=== PATIENT | male | born 1960 | race Caucasian/White ===

== ENCOUNTER 2018-03-10 13:30 | Inpatient (IN) | payer MEDICAID, OTHER ==
[2018-03-10] MEDS ORDERED: HYDROmorphone 0.5 MG/0.5 ML Syringe IVPUSH ONE (14:05)
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
[2018-03-10] MEDS ORDERED: Iopamidol 612 MG/ML 100 ML Bottle IV SCH (14:45)
[2018-03-10] MEDS ORDERED: Sodium Chloride 0.9% 100 ML IV SCH (14:45)
--- NOTE | 2018-03-10 15:12 | CT ---
Chest Abdomen Pelvis w Cont HISTORY: fall, trauma, left chest pain, hip pain Axial spiral enhanced CT scan of the chest, abdomen, and pelvis was obtained using IV contrast only. Coronal, sagittal, and MIP reconstructions were obtained. There are no prior exams for comparison. Auto dosage and iterative reconstruction techniques were employed. FINDINGS: Lungs are clear with no infiltrate or mass. There are calcified right hilar lymph nodes con sistent with old healed granulomatous disease. Heart size is within normal limits. No hilar or medias tinal mass or adenopathy is seen. A small amount of coronary artery calcification is noted. There is mild atherosclerotic calcification in the aortic arch. I see no signs of aortic aneurysm, dissection, or transection. No pleural fluid or chest wall abnormality is seen. Attenuation of the liver is decreased diffusely consistent with fatty infiltration. No other focal ab normality of the liver is identified. A tiny calcified granuloma is noted in the spleen. No other spl enic abnormality seen. I see no focal abnormality of the gallbladder, pancreas, adrenal glands, or ki dneys. There is no hydronephrosis or ureteral dilatation. No intrapelvic mass or abnormal fluid collections are seen. There is no pelvic, retroperitoneal, or m esenteric adenopathy. Visualized bowel loops are unremarkable. A normal-appearing appendix is seen. T here is no free air or free fluid. I see no retroperitoneal mass or hematoma. Bone windows demonstrate anterolateral aspects diffusely along the thoracic and lumbar spine. No comp ression fracture is seen. There is a mildly displaced fracture left transverse process of the L2 vert ebrae. No other acute fracture is identified. There is stranding in the subcutaneous fat posterior to the lumbar spine and sacrum extending to the left gluteal region. Associated hematoma is seen in the subcutaneous tissues posteriorly to the left of midline measuring about 6.2 cm transversely, 3.5 cm in AP diameter, and approximately 8.9 cm longi tudinally. I see no enhancement or other signs of active bleeding in this area. IMPRESSION: 1. Ecchymosis/bruising in the subcutaneous tissues posterior to the sacrum and extending to the left gluteal region. There is an associated hematoma to the left of midline measuring 6.2 x 3.5 x 8.9 cm. No active bleeding is seen. 2. There is a mildly displaced fracture left transverse process of the L2 vertebrae. No other definit e fracture can be seen. 3. No other acute abnormality of the chest, abdomen, or pelvis is identified. 4. Diffuse degenerative and operative changes thoracic and lumbar spine. 5. Evidence of old healed granulomatous disease. Fatty infiltration of the liver is noted. Findings were discussed with Dr. Parker in the emergency department at 1505 hours.
[2018-03-10] MEDS ORDERED: Polyethylene Glycol 3350 Powder 17 GM Packet PO PRN (16:19)
[2018-03-10] MEDS ORDERED: Ondansetron 4 MG Tab.DIS PO PRN (16:19)
[2018-03-10] MEDS ORDERED: Ibuprofen 600 MG Tab PO PRN (16:19)
[2018-03-10] MEDS ORDERED: Acetaminophen 325 MG Tab PO PRN (16:19)
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
[2018-03-10] MEDS: HYDROmorphone 0.5 MG/0.5 ML Syringe IVPUSH PRN ×2 (17:09→19:36)
[2018-03-10] MEDS: oxyCODONE 5 MG Tab PO PRN (22:15)
[2018-03-11] MEDS: oxyCODONE 5 MG Tab PO PRN ×4 (03:17→20:52)
[2018-03-11] MEDS ORDERED: LORazepam 1 MG Tab PO ONE (07:46)
--- NOTE | 2018-03-11 08:27 | PCM.PN ---
- General Info Date of Service: 03/11/18 Functional Status: Reports: Tolerating Diet. Denies: Pain Controlled - Review of Systems General: Denies: Fever Musculoskeletal: Reports: Back Pain Neurological: Reports: Tremors Systems Review Comment:: There were no acute events overnight. Pain has had some improvement with pain medications provided but he still has a fair amount of lower back pain in the area of the hematoma. He did have some mild hematuria this morning but did not have any discomfort with that. He does not have any chest pain and has not been hypoxic. This morning he is anxious and his blood pressure has jumped up significantly. He is tremulous. There is concerned that he is experiencing alcohol withdrawal. We did discuss consuming alcohol while hospitalized versus cold turkey withdrawal and he prefers the latter option. - Patient Data Vitals - Most Recent: Last Vital Signs Temp 36.4 C 03/11/18 07:37 Pulse 86 03/11/18 07:37 Resp 16 03/11/18 07:37 BP 171/84 H 03/11/18 07:37 Pulse Ox 98 03/11/18 07:37 Weight - Most Recent: 101.1 kg Lab Results Last 24 Hours: Laboratory Results - last 24 hr 03/10/18 03/10/18 03/10/18 Range/Units 14:00 14:00 14:00 WBC 9.5 (4.5-11.0) K/uL RBC 4.02 L (4.30-5.90) M/uL Hgb 14.1 (12.0-15.0) g/dL Hct 40.4 (40.0-54.0) % MCV 101 H (80-98) fL MCH 35 H (27-31) pg MCHC 35 (32-36) % Plt Count 143 L (150-400) K/uL Neut % (Auto) 70 H (36-66) % Lymph % (Auto) 20 L (24-44) % [place] % (Auto) 8 H (2-6) % Eos % (Auto) 1 L (2-4) % Baso % (Auto) 0 (0-1) % Sodium 129 L (140-148) mmol/L Potassium 4.6 (3.6-5.2) mmol/L Chloride 95 L (100-108) mmol/L Carbon Dioxide 22 (21-32) mmol/L Anion Gap 16.6 H (5.0-14.0) mmol/L BUN 12 (7-18) mg/dL Creatinine 1.0 (0.8-1.3) mg/dL Est Cr Clr Drug Dosing 87.30 mL/min Estimated GFR (MDRD) > 60 (>60) Glucose 138 H (74-106) mg/dL Calcium 8.6 (8.5-10.1) mg/dL Ethyl Alcohol 334 mg/dL 03/10/18 03/11/18 03/11/18 Range/Units 20:00 05:11 05:11 WBC 9.6 (4.5-11.0) K/uL RBC 3.57 L (4.30-5.90) M/uL Hgb 12.5 12.4 (12.0-15.0) g/dL Hct 36.3 L (40.0-54.0) % MCV 102 H (80-98) fL MCH 35 H (27-31) pg MCHC 34 (32-36) % Plt Count 129 L (150-400) K/uL Neut % (Auto) (36-66) % Lymph % (Auto) (24-44) % [place] % (Auto) (2-6) % Eos % (Auto) (2-4) % Baso % (Auto) (0-1) % Sodium 132 L (140-148) mmol/L Potassium 4.6 (3.6-5.2) mmol/L Chloride 96 L (100-108) mmol/L Carbon Dioxide 23 (21-32) mmol/L Anion Gap 17.6 H (5.0-14.0) mmol/L BUN 17 (7-18) mg/dL Creatinine 1.3 (0.8-1.3) mg/dL Est Cr Clr Drug Dosing 67.15 mL/min Estimated GFR (MDRD) 57 L (>60) Glucose 134 H (74-106) mg/dL Calcium 8.8 (8.5-10.1) mg/dL Ethyl Alcohol mg/dL Med Orders - Current: Current Medications Acetaminophen (Tylenol) 650 mg PO Q4H PRN PRN Reason: Pain (Mild 1-3)/fever Folic Acid (Folic Acid) 1 mg PO DAILY [facility] Gabapentin (Neurontin) 400 mg PO TID [facility] Hydromorphone HCl (Dilaudid) 0.5 mg IVPUSH Q2H PRN PRN Reason: Pain (severe 7-10) Last Admin: 03/10/18 19:36 Dose: 0.5 mg Sodium Chloride (Normal Saline) 1,000 mls @ 125 mls/hr IV ASDIRECTED [facility] Ibuprofen (Motrin) 600 mg PO Q6H PRN PRN Reason: Pain/Fever Lorazepam (Ativan) 0 mg IV ASDIRECTED [facility]; Protocol Lorazepam (Ativan) 0 mg PO ASDIRECTED [facility]; Protocol Losartan Potassium (Cozaar) 50 mg PO DAILY [facility] Melatonin (Melatonin) 9 mg PO BEDTIME [facility] Ondansetron HCl (Zofran Odt) 4 mg PO Q6H PRN PRN Reason: Nausea able to take PO Oxycodone HCl (Oxycodone) 5 - 10 mg PO Q4H PRN PRN Reason: Pain (moderate 4-6) Last Admin: 03/11/18 03:17 Dose: 10 mg Polyethylene Glycol (Miralax) 17 gm PO DAILY PRN PRN Reason: Constipation Senna/Docusate Sodium (Senna Plus) 1 tab PO BID PRN PRN Reason: Constipation Thiamine HCl (Vitamin B-1) 100 mg PO DAILY [facility] Discontinued Medications Hydromorphone HCl (Dilaudid) 0.5 mg IVPUSH ONETIME ONE Stop: 03/10/18 14:06 Last Admin: 03/10/18 14:10 Dose: 0.5 mg Sodium Chloride (Normal Saline) 100 mls @ 3 mls/sec IV ASDIRECTED [facility] Last Admin: 03/10/18 14:35 Dose: 3 mls/sec Iopamidol (Isovue-300 (61%)) 100 ml IV . DIRECTED [facility] Last Admin: 03/10/18 14:35 Dose: 100 ml Lorazepam (Ativan) 1 mg PO ONETIME ONE Stop: 03/11/18 07:47 Last Admin: 03/11/18 08:16 Dose: 1 mg - Exam Quality Assessment: No: Supplemental Oxygen General: Alert, Oriented, Cooperative, Mild Distress Lungs: Clear to Auscultation, Normal Respiratory Effort Cardiovascular: Regular Rate, Regular Rhythm GI/Abdominal Exam: Soft, No Distention Back Exam: Other (large area of swelling left lower back ). No: Full Range of Motion Extremities: No Pedal Edema Skin: Warm, Dry Psy/Mental Status: Alert, Anxious, Withdrawal Symptoms (tremors and tongue fasciculations). No: Agitated - Problem List & Annotations (1) Traumatic hematoma of buttock SNOMED Code(s): 79069589, 261327245 Code(s): S30.0XXA - CONTUSION OF LOWER BACK AND PELVIS, INITIAL ENCOUNTER Status: Acute Current Visit: Yes Qualifiers: Encounter type: initial encounter Qualified Code(s): S30.0XXA - Contusion of lower back and pelvis, initial encounter (2) Fracture of transverse process of lumbar vertebra SNOMED Code(s): 121659780 Code(s): S32.009A - UNSP FRACTURE OF UNSP LUMBAR VERTEBRA, INIT FOR CLOS FX Status: Acute Current Visit: Yes Qualifiers: Encounter type: initial encounter Fracture type: closed Qualified Code(s) : S32.009A - Unspecified fracture of unspecified lumbar vertebra, initial encounter for closed fracture (3) Alcohol intoxication SNOMED Code(s): 30629427 Code(s): F10.929 - ALCOHOL USE, UNSPECIFIED WITH INTOXICATION, UNSPECIFIED Status: Acute Current Visit: Yes Qualifiers: Complication of substance-induced condition: uncomplicated Qualified Code(s ): F10.920 - Alcohol use, unspecified with intoxication, uncomplicated - Problem List Review Problem List Initiated/Reviewed/Updated: Yes - My Orders Last 24 Hours: My Active Orders 03/10/18 16:11 Resuscitation Status Routine 03/10/18 16:19 Patient Status [ADT] Routine Cooling Warming Measures [RC] ASDIRECTED Intake and Output [RC] QSHIFT Notify Provider Vital Signs [RC] ASDIRECTED Oxygen Therapy [RC] PRN Up With Assistance [RC] ASDIRECTED VTE/DVT Education [RC] Per Unit Routine Vital Signs [RC] Q2HR Acetaminophen [Tylenol] 650 mg PO Q4H PRN Docusate Sodium/Sennosides [Senna Plus] 1 tab PO BID PRN HYDROmorphone [Dilaudid] 0.5 mg IVPUSH Q2H PRN Ibuprofen [Motrin] 600 mg PO Q6H PRN Ondansetron [Zofran ODT] 4 mg PO Q6H PRN Polyethylene Glycol 3350 [MiraLAX] 17 gm PO DAILY PRN oxyCODONE 5 - 10 mg PO Q4H PRN Heat Therapy [OM.PC] Routine Ice Bag [Ice Therapy] [OM.PC] Routine Sequential Compression Device [OM.PC] Per Unit Routine VTE Pharmacological Contraindications [AST] Per Unit Routine 03/10/18 Dinner Regular Diet [DIET] 03/11/18 08:21 Transfer Patient (Change bed) [ADT] Routine UA W/MICROSCOPIC [URIN] Routine 03/11/18 08:22 CIWAA Assessment [RC] Q1H Cardiac Monitoring [RC] CONTINUOUS Notify Provider [RC] PRN Pulse Oximetry [RC] CONTINUOUS HEPATIC FUNCTION PANEL,HFP [CHEM] Routine MAGNESIUM [CHEM] Routine 03/11/18 08:24 CREATINE KINASE,CK [CHEM] Routine 03/11/18 08:30 LORazepam [Ativan] See Protocol IV ASDIRECTED LORazepam [Ativan] See Protocol PO ASDIRECTED Sodium Chloride 0.9% @ 125 MLS/HR (1000ml) Sodium Chloride 0.9% [Normal Saline] 1,000 ml IV ASDIRECTED 03/11/18 09:00 Folic Acid 1 mg PO DAILY Gabapentin [Neurontin] 400 mg PO TID Losartan [Cozaar] 50 mg PO DAILY Thiamine [Vitamin B-1] 100 mg PO DAILY 03/11/18 21:00 Melatonin 9 mg PO BEDTIME - Plan Plan:: ASSESSMENT AND PLAN - Fall with left buttocks hematoma and transverse fracture of L2 - significant pain because of the hematoma and bruising after the fall. L2 fracture is nondisplaced and does not need any intervention. Still having a fair amount of pain and mobility has been limited. This will be even more complicated now with alcohol withdrawal as discussed below. -Oxycodone for moderate pain and hydromorphone for severe pain -Alternate heat and ice to the large area of hematoma in the lower back -Advance activity as tolerated -Repeat hemoglobin in the morning Alcohol dependence with acute withdrawal - symptoms include anxiousness and signs include tremor and tachycardia. Long history of heavy alcohol use. No history of alcohol withdrawal though he admits he's never quit drinking long enough to go into withdrawal. -gabapentin 3 times a day -Melatonin at bedtime -CIWA assessment with lorazepam protocol -Thiamine and folate supplementation -Pulse oximetry and cardiac monitoring Essential hypertension - usual medications will be continued. Maintenance issues - - DVT prophylaxis - mechanical with recent trauma and hematoma - GI prophylaxis - not indicated - Nutrition - regular diet - Soliz catheter - not indicated CODE STATUS - full code Admission justification - patient will be admitted to inpatient status with his development of alcohol withdrawal. He will be transferred to the intensive care unit for management of alcohol withdrawal. Disposition - I would anticipate discharged home after the hospital stay Primary care physician - Verónica Boateng M.D.
[2018-03-11] MEDS: Sodium Chloride 0.9% 1,000 ML IV SCH ×3 (09:02→23:37)
[2018-03-11] MEDS: HYDROmorphone 0.5 MG/0.5 ML Syringe IVPUSH PRN (09:02)
[2018-03-11] MEDS: LORazepam 2 MG/ML SDV IV SCH ×3 (09:06→23:37)
[2018-03-11] MEDS: Thiamine 100 MG Tab PO SCH (10:25)
[2018-03-11] MEDS: Gabapentin 400 MG Cap PO SCH ×3 (10:25→20:54)
[2018-03-11] MEDS: Folic Acid 1 MG Tab PO SCH (10:25)
[2018-03-11] MEDS: Losartan 50 MG Tab PO SCH (10:34)
[2018-03-11] MEDS: LORazepam 1 MG Tab PO SCH ×5 (10:35→21:18)
[2018-03-11] MEDS: Melatonin 3 MG Tab PO SCH (20:54)
[2018-03-12] MEDS: oxyCODONE 5 MG Tab PO PRN ×4 (04:35→19:28)
[2018-03-12] MEDS: LORazepam 2 MG/ML SDV IV SCH ×3 (04:36→22:32)
[2018-03-12] MEDS: Sodium Chloride 0.9% 1,000 ML IV SCH ×3 (07:16→22:51)
[2018-03-12] MEDS: Losartan 50 MG Tab PO SCH (08:45)
[2018-03-12] MEDS: Folic Acid 1 MG Tab PO SCH (08:45)
[2018-03-12] MEDS: Thiamine 100 MG Tab PO SCH (08:45)
[2018-03-12] MEDS: LORazepam 1 MG Tab PO SCH ×3 (08:46→20:34)
[2018-03-12] MEDS: Gabapentin 400 MG Cap PO SCH ×3 (08:46→20:34)
--- NOTE | 2018-03-12 09:02 | PCM.PN ---
- General Info Date of Service: 03/12/18 Functional Status: Reports: Pain Controlled, Tolerating Diet - Review of Systems General: Reports: Weakness Musculoskeletal: Reports: Back Pain Neurological: Reports: Tremors, Trouble Speaking, Difficulty Walking Psychiatric: Reports: Confusion Systems Review Comment:: overnight the patient had some difficulty with anxiety and agitation. Increasing doses of lorazepam for alcohol withdrawal did eventually settle him down. Vital signs have been stable. He reports that his back pain is somewhat better today but not resolved. No complaints of headache, shortness of breath or abdominal pain. Most recent dose of IV lorazepam was about 4 hours ago. He has not had any fevers. Still has tremors and some mild tongue fasciculations. - Patient Data Vitals - Most Recent: Last Vital Signs Temp 37.3 C 03/12/18 08:00 Pulse 85 03/12/18 08:00 Resp 15 03/12/18 08:00 BP 99/68 03/12/18 08:00 Pulse Ox 94 L 03/12/18 08:00 Weight - Most Recent: 101.1 kg I&O - Last 24 Hours: Intake & Output 03/11/18 03/12/18 03/12/18 22:59 06:59 14:59 Intake Total 1640 Output Total 700 Balance 940 Lab Results Last 24 Hours: Laboratory Results - last 24 hr 03/11/18 Range/Units 17:40 Urine Color [place] Urine Appearance Clear Urine pH 5.0 (4.5-8.0) Ur Specific Delta 1.020 (1.008-1.030) Urine Protein Negative (NEGATIVE) mg/dL Urine Glucose (UA) Normal (NEGATIVE) mg/dL Urine Ketones 15 H (NEGATIVE) mg/dL Urine Occult Blood Negative (NEGATIVE) Urine Nitrite Negative (NEGAITVE) Urine Bilirubin Small (NEGATIVE) Urine Urobilinogen 4 (NORMAL) mg/dL Ur Leukocyte Esterase Negative (NEGATIVE) Urine RBC 0-5 (0-5) Urine WBC 5-10 H (0-5) Ur Epithelial Cells Few Amorphous Sediment Few Urine Bacteria Rare Urine Mucus Few Med Orders - Current: Current Medications Acetaminophen (Tylenol) 650 mg PO Q4H PRN PRN Reason: Pain (Mild 1-3)/fever Folic Acid (Folic Acid) 1 mg PO DAILY [facility] Last Admin: 03/12/18 08:45 Dose: 1 mg Gabapentin (Neurontin) 400 mg PO TID [facility] Last Admin: 03/12/18 08:46 Dose: 400 mg Hydromorphone HCl (Dilaudid) 0.5 mg IVPUSH Q2H PRN PRN Reason: Pain (severe 7-10) Last Admin: 03/11/18 09:02 Dose: 0.5 mg Sodium Chloride (Normal Saline) 1,000 mls @ 125 mls/hr IV ASDIRECTED [facility] Last Admin: 03/12/18 07:16 Dose: 125 mls/hr Ibuprofen (Motrin) 600 mg PO Q6H PRN PRN Reason: Pain/Fever Lorazepam (Ativan) 0 mg IV ASDIRECTED [facility]; Protocol Last Admin: 03/12/18 04:36 Dose: 2 mg Lorazepam (Ativan) 0 mg PO ASDIRECTED [facility]; Protocol Last Admin: 03/12/18 08:46 Dose: 1 mg Losartan Potassium (Cozaar) 50 mg PO DAILY [facility] Last Admin: 03/12/18 08:45 Dose: Not Given Melatonin (Melatonin) 9 mg PO BEDTIME [facility] Last Admin: 03/11/18 20:54 Dose: 9 mg Ondansetron HCl (Zofran Odt) 4 mg PO Q6H PRN PRN Reason: Nausea able to take PO Oxycodone HCl (Oxycodone) 5 - 10 mg PO Q4H PRN PRN Reason: Pain (moderate 4-6) Last Admin: 03/12/18 08:46 Dose: 10 mg Polyethylene Glycol (Miralax) 17 gm PO DAILY PRN PRN Reason: Constipation Senna/Docusate Sodium (Senna Plus) 1 tab PO BID PRN PRN Reason: Constipation Thiamine HCl (Vitamin B-1) 100 mg PO DAILY [facility] Last Admin: 03/12/18 08:45 Dose: 100 mg Discontinued Medications Hydromorphone HCl (Dilaudid) 0.5 mg IVPUSH ONETIME ONE Stop: 03/10/18 14:06 Last Admin: 03/10/18 14:10 Dose: 0.5 mg Sodium Chloride (Normal Saline) 100 mls @ 3 mls/sec IV ASDIRECTED [facility] Last Admin: 03/10/18 14:35 Dose: 3 mls/sec Iopamidol (Isovue-300 (61%)) 100 ml IV . DIRECTED [facility] Last Admin: 03/10/18 14:35 Dose: 100 ml Lorazepam (Ativan) 1 mg PO ONETIME ONE Stop: 03/11/18 07:47 Last Admin: 03/11/18 08:16 Dose: 1 mg - Exam Quality Assessment: No: Supplemental Oxygen General: Alert, Cooperative, No Acute Distress. No: Oriented Lungs: Clear to Auscultation, Normal Respiratory Effort Cardiovascular: Regular Rate, Regular Rhythm GI/Abdominal Exam: Soft, No Distention Extremities: Other (swelling lower left back, much improved). No: Normal Inspection, Increased Warmth Skin: Ecchymosis (left lower back) Psy/Mental Status: Alert, Anxious - Problem List & Annotations (1) Traumatic hematoma of buttock SNOMED Code(s): 13080345, 455748710 Code(s): S30.0XXA - CONTUSION OF LOWER BACK AND PELVIS, INITIAL ENCOUNTER Status: Acute Current Visit: Yes Qualifiers: Encounter type: initial encounter Qualified Code(s): S30.0XXA - Contusion of lower back and pelvis, initial encounter (2) Fracture of transverse process of lumbar vertebra SNOMED Code(s): 648797738 Code(s): S32.009A - UNSP FRACTURE OF UNSP LUMBAR VERTEBRA, INIT FOR CLOS FX Status: Acute Current Visit: Yes Qualifiers: Encounter type: initial encounter Fracture type: closed Qualified Code(s) : S32.009A - Unspecified fracture of unspecified lumbar vertebra, initial encounter for closed fracture (3) Alcohol intoxication SNOMED Code(s): 00881863 Code(s): F10.929 - ALCOHOL USE, UNSPECIFIED WITH INTOXICATION, UNSPECIFIED Status: Acute Current Visit: Yes Qualifiers: Complication of substance-induced condition: uncomplicated Qualified Code(s ): F10.920 - Alcohol use, unspecified with intoxication, uncomplicated - Problem List Review Problem List Initiated/Reviewed/Updated: Yes - My Orders Last 24 Hours: My Active Orders 03/11/18 08:21 Transfer Patient (Change bed) [ADT] Routine 03/11/18 08:22 CIWAA Assessment [RC] Q1H Cardiac Monitoring [RC] CONTINUOUS Notify Provider [RC] PRN Pulse Oximetry [RC] CONTINUOUS 03/11/18 08:30 LORazepam [Ativan] See Protocol IV ASDIRECTED LORazepam [Ativan] See Protocol PO ASDIRECTED Sodium Chloride 0.9% [Normal Saline] 1,000 ml IV ASDIRECTED 03/11/18 09:00 Folic Acid 1 mg PO DAILY Gabapentin [Neurontin] 400 mg PO TID Losartan [Cozaar] 50 mg PO DAILY Thiamine [Vitamin B-1] 100 mg PO DAILY 03/11/18 09:31 Patient Status [ADT] Routine 03/11/18 21:00 Melatonin 9 mg PO BEDTIME 03/13/18 05:00 CBC W/O DIFF,HEMOGRAM [HEME] Timed (1) COMPREHENSIVE METABOLIC PN,CMP [CHEM] Timed CREATINE KINASE,CK [CHEM] Timed - Plan Plan:: ASSESSMENT AND PLAN - Fall with left buttocks hematoma and transverse fracture of L2 - significant pain because of the hematoma and bruising after the fall. L2 fracture is nondisplaced and does not need any intervention. Pain is little bit better today. Movement hampered mostly by his alcohol withdrawal at this point. -Oxycodone for moderate pain and hydromorphone for severe pain -Alternate heat and ice to the large area of hematoma in the lower back -Advance activity as tolerated -Repeat hemoglobin in the morning Alcohol dependence with acute withdrawal - symptoms include anxiousness and signs include tremor and tachycardia. Difficulty with agitation overnight. Patient is confused this morning but able to have a conversation. Still has tremor and tongue fasciculations. Receiving fairly regular doses of both IV and oral lorazepam. -gabapentin 3 times a day -Melatonin at bedtime -CIWA assessment with lorazepam protocol -Thiamine and folate supplementation -Pulse oximetry and cardiac monitoring Essential hypertension - usual medications will be continued. Maintenance issues - - DVT prophylaxis - mechanical with recent trauma and hematoma - GI prophylaxis - not indicated - Nutrition - regular diet - Soliz catheter - not indicated Disposition - I would anticipate discharged home after the hospital stay Jose Boateng M.D.
[2018-03-12] MEDS: Melatonin 3 MG Tab PO SCH (20:34)
[2018-03-13] MEDS: oxyCODONE 5 MG Tab PO PRN ×5 (03:07→20:31)
[2018-03-13] MEDS: LORazepam 1 MG Tab PO SCH (03:07)
[2018-03-13] MEDS: Sodium Chloride 0.9% 1,000 ML IV SCH (06:12)
[2018-03-13] MEDS: Thiamine 100 MG Tab PO SCH (08:39)
[2018-03-13] MEDS: Gabapentin 400 MG Cap PO SCH ×3 (08:39→20:30)
[2018-03-13] MEDS: Losartan 50 MG Tab PO SCH (08:39)
[2018-03-13] MEDS: Folic Acid 1 MG Tab PO SCH (08:39)
--- NOTE | 2018-03-13 09:28 | PCM.PN ---
- General Info Date of Service: 03/13/18 Functional Status: Reports: Pain Controlled, Tolerating Diet - Review of Systems General: Reports: Weakness Neurological: Reports: Confusion, Tremors Systems Review Comment:: Mild difficulty with agitation overnight related to cords for monitoring equipment. Seems to be doing better today with less tremor and less confusion. Back pain slowly improving. Lorazepam requirements for alcohol withdrawal have been slowly decreasing. He has not had any fevers. Strength seems better today. Hemoglobin level stable. - Patient Data Vitals - Most Recent: Last Vital Signs Temp 36.6 C 03/13/18 08:00 Pulse 74 03/13/18 08:00 Resp 17 03/13/18 08:00 BP 118/71 03/13/18 08:00 Pulse Ox 93 L 03/13/18 08:00 Weight - Most Recent: 101.1 kg I&O - Last 24 Hours: Intake & Output 03/12/18 03/13/18 03/13/18 22:59 06:59 14:59 Intake Total 2096 1508 Output Total 1975 1125 Balance 121 383 Lab Results Last 24 Hours: Laboratory Results - last 24 hr 03/13/18 03/13/18 Range/Units 04:10 04:10 WBC 5.0 (4.5-11.0) K/uL RBC 2.84 L (4.30-5.90) M/uL Hgb 10.0 L D (12.0-15.0) g/dL Hct 29.6 L (40.0-54.0) % MCV 104 H (80-98) fL MCH 35 H (27-31) pg MCHC 34 (32-36) % Plt Count 76 L (150-400) K/uL Sodium 134 L (140-148) mmol/L Potassium 3.8 (3.6-5.2) mmol/L Chloride 101 (100-108) mmol/L Carbon Dioxide 25 (21-32) mmol/L Anion Gap 11.8 (5.0-14.0) mmol/L BUN 12 (7-18) mg/dL Creatinine 0.8 (0.8-1.3) mg/dL Est Cr Clr Drug Dosing 109.28 mL/min Estimated GFR (MDRD) > 60 (>60) Glucose 158 H (74-106) mg/dL Calcium 8.1 L (8.5-10.1) mg/dL Total Bilirubin 1.9 H (0.2-1.0) mg/dL AST 113 H (15-37) U/L ALT 83 H (12-78) U/L Alkaline Phosphatase 83 (46-116) U/L Creatine Kinase 192 (39-308) U/L Total Protein 6.2 L (6.4-8.2) g/dL Albumin 2.5 L (3.4-5.0) g/dL Globulin 3.7 H (2.3-3.5) g/dL Albumin/Globulin Ratio 0.7 L (1.2-2.2) Med Orders - Current: Current Medications Acetaminophen (Tylenol) 650 mg PO Q4H PRN PRN Reason: Pain (Mild 1-3)/fever Folic Acid (Folic Acid) 1 mg PO DAILY [facility] Last Admin: 03/13/18 08:39 Dose: 1 mg Gabapentin (Neurontin) 400 mg PO TID [facility] Last Admin: 03/13/18 08:39 Dose: 400 mg Hydromorphone HCl (Dilaudid) 0.5 mg IVPUSH Q2H PRN PRN Reason: Pain (severe 7-10) Last Admin: 03/11/18 09:02 Dose: 0.5 mg Ibuprofen (Motrin) 600 mg PO Q6H PRN PRN Reason: Pain/Fever Lorazepam (Ativan) 0 mg IV ASDIRECTED [facility]; Protocol Last Admin: 03/12/18 22:32 Dose: 2 mg Lorazepam (Ativan) 0 mg PO ASDIRECTED [facility]; Protocol Last Admin: 03/13/18 03:07 Dose: 1 mg Losartan Potassium (Cozaar) 50 mg PO DAILY [facility] Last Admin: 03/13/18 08:39 Dose: 50 mg Melatonin (Melatonin) 9 mg PO BEDTIME [facility] Last Admin: 03/12/18 20:34 Dose: 9 mg Ondansetron HCl (Zofran Odt) 4 mg PO Q6H PRN PRN Reason: Nausea able to take PO Oxycodone HCl (Oxycodone) 5 - 10 mg PO Q4H PRN PRN Reason: Pain (moderate 4-6) Last Admin: 03/13/18 07:40 Dose: 10 mg Polyethylene Glycol (Miralax) 17 gm PO DAILY PRN PRN Reason: Constipation Senna/Docusate Sodium (Senna Plus) 1 tab PO BID PRN PRN Reason: Constipation Thiamine HCl (Vitamin B-1) 100 mg PO DAILY [facility] Last Admin: 03/13/18 08:39 Dose: 100 mg Discontinued Medications Hydromorphone HCl (Dilaudid) 0.5 mg IVPUSH ONETIME ONE Stop: 03/10/18 14:06 Last Admin: 03/10/18 14:10 Dose: 0.5 mg Sodium Chloride (Normal Saline) 100 mls @ 3 mls/sec IV ASDIRECTED [facility] Last Admin: 03/10/18 14:35 Dose: 3 mls/sec Sodium Chloride (Normal Saline) 1,000 mls @ 125 mls/hr IV ASDIRECTED [facility] Last Admin: 03/13/18 06:12 Dose: 125 mls/hr Iopamidol (Isovue-300 (61%)) 100 ml IV . DIRECTED [facility] Last Admin: 03/10/18 14:35 Dose: 100 ml Lorazepam (Ativan) 1 mg PO ONETIME ONE Stop: 03/11/18 07:47 Last Admin: 03/11/18 08:16 Dose: 1 mg - Exam Quality Assessment: No: Supplemental Oxygen General: Alert, Oriented, Cooperative, No Acute Distress Lungs: Normal Respiratory Effort Cardiovascular: Regular Rate, Regular Rhythm GI/Abdominal Exam: Soft, No Distention Back Exam: No: Normal Inspection Extremities: No Pedal Edema Skin: Warm, Dry, Ecchymosis (lower back) Psy/Mental Status: Alert, Normal Affect. No: Anxious - Problem List & Annotations (1) Traumatic hematoma of buttock SNOMED Code(s): 99192997, 861460805 Code(s): S30.0XXA - CONTUSION OF LOWER BACK AND PELVIS, INITIAL ENCOUNTER Status: Acute Current Visit: Yes Qualifiers: Encounter type: initial encounter Qualified Code(s): S30.0XXA - Contusion of lower back and pelvis, initial encounter (2) Fracture of transverse process of lumbar vertebra SNOMED Code(s): 022110395 Code(s): S32.009A - UNSP FRACTURE OF UNSP LUMBAR VERTEBRA, INIT FOR CLOS FX Status: Acute Current Visit: Yes Qualifiers: Encounter type: initial encounter Fracture type: closed Qualified Code(s) : S32.009A - Unspecified fracture of unspecified lumbar vertebra, initial encounter for closed fracture (3) Alcohol intoxication SNOMED Code(s): 46235656 Code(s): F10.929 - ALCOHOL USE, UNSPECIFIED WITH INTOXICATION, UNSPECIFIED Status: Acute Current Visit: Yes Qualifiers: Complication of substance-induced condition: uncomplicated Qualified Code(s ): F10.920 - Alcohol use, unspecified with intoxication, uncomplicated - Problem List Review Problem List Initiated/Reviewed/Updated: Yes - My Orders Last 24 Hours: My Active Orders 03/13/18 08:43 Convert IV to Saline Lock [OM.PC] Routine 03/14/18 05:00 BASIC METABOLIC PANEL,BMP [CHEM] Timed CBC W/O DIFF,HEMOGRAM [HEME] Timed (1) - Plan Plan:: ASSESSMENT AND PLAN - Fall with left buttocks hematoma and transverse fracture of L2 - pain slowly improving at this time. Hemoglobin level stable and hematoma does not seem to be increasing. -Oxycodone for moderate pain and hydromorphone for severe pain -Alternate heat and ice to the large area of hematoma in the lower back -Advance activity as tolerated -Repeat hemoglobin in the morning Alcohol dependence with acute withdrawal - slowly improving and he is more alert and interactive today. Still weak and a little bit confused but a bit better today. -gabapentin 3 times a day -Melatonin at bedtime -CIWA assessment with lorazepam protocol -Thiamine and folate supplementation -Discontinue Pulse oximetry and cardiac monitoring Essential hypertension - usual medications will be continued and blood pressure has been well-controlled. Maintenance issues - - DVT prophylaxis - mechanical with recent trauma and hematoma - GI prophylaxis - not indicated - Nutrition - regular diet - Soliz catheter - not indicated Disposition - I would anticipate discharged home after the hospital stay, hopefully in a day or 2 Jose Boateng M.D.
[2018-03-13] MEDS: Melatonin 3 MG Tab PO SCH (20:30)
[2018-03-14] MEDS: oxyCODONE 5 MG Tab PO PRN ×3 (00:40→12:17)
[2018-03-14 07:31] VITALS: BP 132/90
[2018-03-14] MEDS: Losartan 50 MG Tab PO SCH (08:20)
[2018-03-14] MEDS: Folic Acid 1 MG Tab PO SCH (08:21)
[2018-03-14] MEDS: Thiamine 100 MG Tab PO SCH (08:21)
[2018-03-14] MEDS: Gabapentin 400 MG Cap PO SCH (08:21)
--- NOTE | 2018-03-14 09:19 | PCM.DCSUM1 ---
Discharge Summary - Hospital Course Brief History: 57-year-old male with history of alcohol dependence and chronic hepatitis C who presented with lower back pain and swelling after a fall from a ladder. He was admitted for pain control with a large lumbar hematoma and nondisplaced left L2 fracture. Diagnosis: Stroke: No - Discharge Data Discharge Date: 03/14/18 Discharge Disposition: Home, Self-Care 01 Condition: Fair - Discharge Diagnosis/Problem(s) (1) Traumatic hematoma of buttock SNOMED Code(s): 09247387, 399946164 ICD Code: S30.0XXA - CONTUSION OF LOWER BACK AND PELVIS, INITIAL ENCOUNTER Status: Acute Current Visit: Yes Qualifiers: Encounter type: initial encounter Qualified Code(s): S30.0XXA - Contusion of lower back and pelvis, initial encounter (2) Fracture of transverse process of lumbar vertebra SNOMED Code(s): 688498463 ICD Code: S32.009A - UNSP FRACTURE OF UNSP LUMBAR VERTEBRA, INIT FOR CLOS FX Status: Acute Current Visit: Yes Qualifiers: Encounter type: initial encounter Fracture type: closed Qualified Code(s) : S32.009A - Unspecified fracture of unspecified lumbar vertebra, initial encounter for closed fracture (3) Alcohol intoxication SNOMED Code(s): 08177113 ICD Code: F10.929 - ALCOHOL USE, UNSPECIFIED WITH INTOXICATION, UNSPECIFIED Status: Acute Current Visit: Yes Qualifiers: Complication of substance-induced condition: with delirium Qualified Code(s ): F10.921 - Alcohol use, unspecified with intoxication delirium - Patient Summary/Data Hospital Course: Tavon presented to the emergency room with acute lower back pain and swelling after falling off a ladder at home. Workup in the emergency room revealed a large hematoma of the left lower back and left buttocks area. He had a nondisplaced fracture of the L2 transverse process. He had significant difficulty moving around so he was admitted for pain control. Unfortunately the morning after admission he developed severe alcohol withdrawal with delirium and was transferred to the intensive care unit. He was started on the lorazepam protocol as well as gabapentin and melatonin. He required IV doses of lorazepam for the next couple of days but eventually his alcohol withdrawal did slowly improve. We did check some laboratory studies and his bilirubin is mildly elevated as were his AST and ALT. The elevation of his transaminases was consistent with his chronic hepatitis C infection. Slowly but steadily his alcohol withdrawal improved. His back pain has been slowly improving but still remains moderate in nature. Oxycodone has been sufficient to control his back pain. He has not received any lorazepam in 24 hours. He is up and moving around independently and I believe he is safe for outpatient management at this time. He will be using oxycodone for moderate to severe pain and acetaminophen and ibuprofen for mild pain. He will increase his activity as tolerated. Regarding his alcohol use, I did chemical dependency counselor him about the dangers of using alcohol while he has an active hepatitis C infection. We discussed how alcohol use in the setting of this infection can accelerate liver damage. He is going to work on quitting drinking and has been counseled in the past by his patcher helper who told him the same thing. He is aware of [place] for detoxification as well as the Alcoholics Anonymous classes [facility]. - Patient Instructions Diet: Regular Diet as Tolerated Activity: As Tolerated Showering/Bathing: May Shower Notify Provider of: Fever, Increased Pain, Nausea and/or Vomiting Other/Special Instructions: 1. You were in the hospital for management of a traumatic hematoma of your lower back with non-displaced fracture of your L2 vertebrae. This fracture does not need specific treatment and will heal on its own. Your pain has been slowly improving. This pain will likely take several more days to resolve. You should slowly increase your activity as tolerated. I have provided a prescription for oxycodone. You can use this medication for moderate to severe pain. You could use acetaminophen or ibuprofen for mild pain. 2. During the hospital stay you developed alcohol withdrawal. This condition has resolved with management provided here in the hospital. I would strongly suggest abstinence from alcohol, especially because you have hepatitis C. The combination of alcohol and hepatitis C can accelerate liver damage which could be permanent and fatal. 3. Continue your home medication as previously prescribed. 4. Seek medical attention if you have fever greater than 101, severe pain not controlled by pills at home or if you develop sudden onset of shortness of breath or chest pain. - Discharge Plan *PRESCRIPTION DRUG MONITORING PROGRAM REVIEWED*: Not Applicable *COPY OF PRESCRIPTION DRUG MONITORING REPORT IN PATIENT [place]: Not Applicable Prescriptions/Med Rec: oxyCODONE 5 - 10 mg PO Q4H PRN #40 tablet PRN Reason: Pain (Moderate 4-6) Home Medications: Home Meds Losartan [Cozaar] 50 mg PO DAILY 03/10/18 [History] oxyCODONE 5 - 10 mg PO Q4H PRN #40 tablet 03/14/18 [Rx] Patient Handouts: Alcohol Use Disorder Referrals: Verónica Ballard PA [Primary Care Provider] - (f/u as scheduled tomorrow) - Discharge Summary/Plan Comment DC Time >30 min.: No - Patient Data Vitals - Most Recent: Last Vital Signs Temp 36.2 C 03/14/18 07:30 Pulse 68 03/14/18 07:30 Resp 16 03/14/18 07:30 BP 132/90 03/14/18 08:20 Pulse Ox 97 03/14/18 03:14 Weight - Most Recent: 101.1 kg I&O - Last 24 hours: Intake & Output 03/13/18 03/14/18 03/14/18 22:59 06:59 14:59 Intake Total 700 Output Total 900 Balance -900 700 Lab Results - Last 24 hrs: Laboratory Results - last 24 hr 03/14/18 03/14/18 Range/Units 04:30 04:30 WBC 4.3 L (4.5-11.0) K/uL RBC 2.84 L (4.30-5.90) M/uL Hgb 10.1 L (12.0-15.0) g/dL Hct 29.7 L (40.0-54.0) % MCV 105 H (80-98) fL MCH 36 H (27-31) pg MCHC 34 (32-36) % Plt Count 75 L (150-400) K/uL Sodium 135 L (140-148) mmol/L Potassium 3.8 (3.6-5.2) mmol/L Chloride 102 (100-108) mmol/L Carbon Dioxide 29 (21-32) mmol/L Anion Gap 7.8 (5.0-14.0) mmol/L BUN 12 (7-18) mg/dL Creatinine 0.9 (0.8-1.3) mg/dL Est Cr Clr Drug Dosing 97.14 mL/min Estimated GFR (MDRD) > 60 (>60) Glucose 158 H (74-106) mg/dL Calcium 8.7 (8.5-10.1) mg/dL Med Orders - Current: Current Medications Acetaminophen (Tylenol) 650 mg PO Q4H PRN PRN Reason: Pain (Mild 1-3)/fever Folic Acid (Folic Acid) 1 mg PO DAILY [facility] Last Admin: 03/14/18 08:21 Dose: 1 mg Gabapentin (Neurontin) 400 mg PO TID [facility] Last Admin: 03/14/18 08:21 Dose: 400 mg Hydromorphone HCl (Dilaudid) 0.5 mg IVPUSH Q2H PRN PRN Reason: Pain (severe 7-10) Last Admin: 03/11/18 09:02 Dose: 0.5 mg Ibuprofen (Motrin) 600 mg PO Q6H PRN PRN Reason: Pain/Fever Lorazepam (Ativan) 0 mg IV ASDIRECTED [facility]; Protocol Last Admin: 03/12/18 22:32 Dose: 2 mg Lorazepam (Ativan) 0 mg PO ASDIRECTED [facility]; Protocol Last Admin: 03/13/18 03:07 Dose: 1 mg Losartan Potassium (Cozaar) 50 mg PO DAILY [facility] Last Admin: 03/14/18 08:20 Dose: 50 mg Melatonin (Melatonin) 9 mg PO BEDTIME [facility] Last Admin: 03/13/18 20:30 Dose: 9 mg Ondansetron HCl (Zofran Odt) 4 mg PO Q6H PRN PRN Reason: Nausea able to take PO Oxycodone HCl (Oxycodone) 5 - 10 mg PO Q4H PRN PRN Reason: Pain (moderate 4-6) Last Admin: 03/14/18 06:50 Dose: 10 mg Polyethylene Glycol (Miralax) 17 gm PO DAILY PRN PRN Reason: Constipation Senna/Docusate Sodium (Senna Plus) 1 tab PO BID PRN PRN Reason: Constipation Thiamine HCl (Vitamin B-1) 100 mg PO DAILY [facility] Last Admin: 03/14/18 08:21 Dose: 100 mg Discontinued Medications Hydromorphone HCl (Dilaudid) 0.5 mg IVPUSH ONETIME ONE Stop: 03/10/18 14:06 Last Admin: 03/10/18 14:10 Dose: 0.5 mg Sodium Chloride (Normal Saline) 100 mls @ 3 mls/sec IV ASDIRECTED [facility] Last Admin: 03/10/18 14:35 Dose: 3 mls/sec Sodium Chloride (Normal Saline) 1,000 mls @ 125 mls/hr IV ASDIRECTED [facility] Last Admin: 03/13/18 06:12 Dose: 125 mls/hr Iopamidol (Isovue-300 (61%)) 100 ml IV . DIRECTED [facility] Last Admin: 03/10/18 14:35 Dose: 100 ml Lorazepam (Ativan) 1 mg PO ONETIME ONE Stop: 03/11/18 07:47 Last Admin: 03/11/18 08:16 Dose: 1 mg - Exam Quality Assessment: Denies: Supplemental Oxygen General: Reports: Alert, Oriented, Cooperative, No Acute Distress Lungs: Reports: Normal Respiratory Effort Cardiovascular: Reports: Regular Rate, Regular Rhythm GI/Abdominal Exam: Soft, No Distention Back Exam: Reports: Other (Large bruises over his lower back left greater than right). Denies: Normal Inspection Extremities: No Pedal Edema Skin: Reports: Warm, Dry Psy/Mental Status: Reports: Alert, Normal Affect *Q Meaningful Use (DIS) - VTE *Q VTE Pharmacological Contraindications *Q: Active Hemorrhage
== END 2018-03-14 12:42 | disposition home or self-care (01) | DRG 552 ==
LOC: JP.ED 13:30 → JP.MS 16:11 → JP.ICU 03-11 08:21 → OBSVTOIN 03-11 09:31
PROVIDERS: ADMIT Internal Medicine; ATTEND Internal Medicine
DX: S32.029A Unspecified fracture of second lumbar vertebra, initial encounter for closed fracture (principal); F10.231 Alcohol dependence with withdrawal delirium; S30.0XXA Contusion of lower back and pelvis, initial encounter; Y90.8 Blood alcohol level of 240 mg/100 ml or more; F10.229 Alcohol dependence with intoxication, unspecified; B18.2 Chronic viral hepatitis C; I10 Essential (primary) hypertension; W11.XXXA Fall on and from ladder, initial encounter; Y93.H9 Activity, other involving exterior property and land maintenance, building and construction; Y92.007 Garden or yard of unspecified non-institutional (private) residence as the place of occurrence of the external cause; Z88.5 Allergy status to narcotic agent; Z91.018 Allergy to other foods
CPT/HCPCS: 36415; 71260; 71260-26; 74177; 74177-26; 80048; 80053; 80076; 81001; 82550; 83735; 85018; 85025; 85027; 96374; 96375; 96376; 99232; 99238; 99285-25; A9270-GY; G0480; J1170; J2060; J7030; Q9967

== ENCOUNTER 2020-03-16 07:38 | Inpatient (IN) | payer MEDICAID ==
[2020-03-16] MEDS ORDERED: Sodium Chloride 0.9% 1,000 ML IV SCH (08:15)
[2020-03-16] MEDS ORDERED: fentaNYL 100 MCG/2 ML SDV ONE (09:12)
[2020-03-16] MEDS ORDERED: Propofol 200 MG/20 ML SDV ONE ×2 (09:12→10:11)
[2020-03-16] MEDS ORDERED: Midazolam 1 MG/ML 2 ML SDV ONE (09:12)
[2020-03-16] MEDS ORDERED: Pantoprazole 40 MG Vial IVPUSH ONE (10:54)
[2020-03-16] MEDS ORDERED: Ondansetron 4 MG/2 ML SDV IVPUSH PRN (15:26)
[2020-03-16] MEDS ORDERED: Bisacodyl 10 MG Supp RECTAL ONE (15:30)
--- NOTE | 2020-03-16 15:36 | CT ---
Abdomen Pelvis wo Cont CLINICAL HISTORY: Pain post colonoscopy COMPARISON: None. TECHNIQUE: Axial tomographic images are obtained from the dome of the diaphragm to the pubic symphysis without IV contrast enhancement. No oral contrast was used. Auto dosage reduction and iterative reconstruction techniques employed. FINDINGS: The lung bases are clear. There are a few scattered granulomata. The liver is small and lobulated. There is significant abdominal pelvic ascites. There is mild splenomegaly.. The gallbladder is not well seen. No stones are identified. The pancreas shows no mass or inflammatory change. The adrenal glands appear normal bilaterally. The kidneys show no stones or hydronephrosis. The aorta shows atheromatous plaque without aneurysm. There is no suspicious retroperitoneal adenopathy. Bladder has a normal contour. No free air is identified. There is diffuse gaseous distention of small bowel and colon related to recent colonoscopy. IMPRESSION: Massive ascites Small bowel and colonic distention from recent colonoscopy. No free air is seen. Changes of cirrhosis Mild splenomegaly
[2020-03-16] MEDS: Dextrose 5%-Lactated Ringers 1,000 ML IV SCH (15:45)
[2020-03-16] MEDS ORDERED: Naloxone 0.4 MG/ML SDV IV PRN (16:00)
[2020-03-16] MEDS: HYDROmorphone/Normal Saline 15 MG/30 ML PCA IV PRN (16:12)
--- NOTE | 2020-03-16 16:27 | OR ---
DATE OF PROCEDURE: 03/16/2020 SURGEON: King Holt MD PREOPERATIVE DIAGNOSIS: Hepatic cirrhosis. POSTOPERATIVE DIAGNOSES: 1. Upper gastrointestinal endoscopy showing: a. Large hiatal hernia (5 cm) with multiple linear esophageal ulcers. b. No evident esophageal or gastric varices. c. Diffuse mild gastritis. 2. Flexible colonoscopy showing: a. Small polyps involving distal transverse and distal sigmoid colon. b. Significant engorgement of hemorrhoidal vein. 3. OPERATIVE PROCEDURES: 1. Esophagogastroduodenoscopy with: a. Biopsy of esophagogastric junction for histologic evaluation. b. Biopsies of antrum for CLOtest. 2. Flexible colonoscopy with: a. Polypectomy by snare technique x2. b. Injection of Laina ink into submucosa adjacent to the polypectomy site. ANESTHESIA: IV sedation. INDICATION FOR PROCEDURE: The patient is being treated for hepatitis C related hepatic cirrhosis. He underwent upper and lower endoscopy for diagnostic purposes. Potential risks of the procedure including bleeding and perforation were discussed and the patient wishes to proceed. DETAILS OF PROCEDURE: The patient was taken to the operating room, placed in a left lateral decubitus position. IV sedation was administered, after which the upper GI endoscope was passed orally through the length of the esophagus into the stomach with retroflexion view of the fundus and thereafter through the pyloric channel and into the junction of the third and fourth portions of the duodenum. Findings included normal hypopharynx, larynx, upper esophageal sphincter, esophageal body. At the EG junction, the patient was noted to have roughly 5 cm hiatal hernia with quite aggressive-appearing distal esophagitis. This included multiple ulcers extending up to size 5 cm above the esophagogastric junction and these were covered with fibrinous exudate. No active bleeding was seen. Within the stomach, there was mild diffuse gastritis more prominent in the antrum without erosions or ulcers. Pyloric channel and the visualized portion of the duodenum were unremarkable. At this point, biopsies were taken from the antrum and sent for CLOtest for H. pylori. Multiple biopsies were obtained from the area of ulcerations in the distal esophagus and sent for histologic evaluation. Of note, the patient did not have any evidence of esophageal or gastric varices. Gastroscope at this point was then withdrawn and the procedure concluded. Attention was then taken to the colonoscopy. The digital rectal exam was performed and it was unremarkable. Colonoscope was then passed into the rectum. Retroflexion revealed some hemorrhoidal veins. These were not significantly engorged. The scope was then passed to the level of the cecum with the ileocecal valve being visualized. The prep was fair. There was some liquid stool obscuring 5% of the surface where the polyp less than 0.5 cm might be missed. Otherwise, there were 2 polyps; one in the distal sigmoid colon and one in the distal transverse colon. Both of these were removed by means of cautery snare technique and retrieved. Both sites were then marked with submucosal injection of 3 mL of Laina ink at each side, and at that point, the scope was withdrawn. No additional findings were noted. The procedure was concluded. The patient was taken to the recovery room in satisfactory condition. The patient's overall management at this point will include a repeat paracentesis in roughly 1 week. With regard to the esophagitis, we will give the patient Protonix 40 mg IV in the PAR and then begin 40 mg orally daily. King Holt MD /[id number]
[2020-03-16] MEDS: Metoclopramide 10 MG/2 ML SDV IV SCH ×2 (16:28→21:40)
[2020-03-16] MEDS: Pantoprazole 40 MG Vial IV SCH (16:28)
--- NOTE | 2020-03-16 19:51 | OR ---
DATE OF PROCEDURE: 03/16/2020 SURGEON: King Holt MD PREOPERATIVE DIAGNOSIS: Tense ascites. POSTOPERATIVE DIAGNOSIS: Tense ascites. OPERATIVE PROCEDURE: Ultrasound-guided paracentesis. ANESTHESIA: Local. INDICATION FOR PROCEDURE: The patient presents again with tense ascites 1 week after previous paracentesis. Plan is to proceed with paracentesis with ultrasound guidance. Potential risks including bleeding, infection, and injury to the underlying viscera were all reviewed, and the patient wishes to proceed. DETAILS OF PROCEDURE: In the health care / [facility] procedure room, the abdomen was interrogated with ultrasound, and an area in the right subcostal region was then identified for the paracentesis. The area was prepped and draped, anesthetized with 1% lidocaine, and the paracentesis catheter was then placed. 5 L of clear serous fluid was removed, and at that point, the catheter was withdrawn, and a pursestring stitch of 2-0 Prolene placed to prevent leakage, and a dressing applied. The plan regarding this would be also to repeat the paracentesis in 1 week. We are awaiting improvement in his medical status and some efficacy of the diuretics, but plan will be to repeat paracentesis in 1 week. Later today, he will be undergoing a colonoscopy and upper endoscopy for further evaluation of his underlying liver disease as well as screening colonoscopy. King Holt MD /[id number]
[2020-03-17] MEDS: Metoclopramide 10 MG/2 ML SDV IV SCH ×4 (03:44→21:02)
[2020-03-17] MEDS: Pantoprazole 40 MG Vial IV SCH (03:44)
[2020-03-17] MEDS: Bisacodyl 5 MG Tab PO SCH ×3 (08:32→21:02)
[2020-03-17] MEDS: Azithromycin 250 MG Tab PO SCH ×2 (08:32→21:02)
[2020-03-17] MEDS: Furosemide 20 MG Tab PO SCH (08:32)
[2020-03-17] MEDS: Spironolactone 25 MG Tab PO SCH (08:32)
[2020-03-17] MEDS: Losartan 50 MG Tab PO SCH (08:32)
--- NOTE | 2020-03-17 12:56 | PN ---
DATE OF SERVICE: 03/17/2020 The patient was admitted yesterday after a colonoscopy and upper endoscopy for marked abdominal distention and obstipation. He was passing a little bit of flatus overnight, but was still quite distended and not comfortable. We will switch him to inpatient status and then give him some additional bowel stimulation with oral Zithromax as well as Dulcolax oral tablets and make sure we will give him some additional albumin as well for treatment of the underlying cirrhosis and go up to a regular diet. King Holt MD /[id number]
[2020-03-17] MEDS: Pantoprazole 40 MG Tab.CR PO SCH (16:28)
[2020-03-17] MEDS: Dextrose 5%-Lactated Ringers 1,000 ML IV SCH (18:04)
[2020-03-17] MEDS ORDERED: Lidocaine 2% Jelly 10 ML Urojet MUCMEM ONE (18:54)
[2020-03-17] MEDS ORDERED: Lidocaine 2% Jelly 10 ML Urojet ONE (19:04)
[2020-03-18] MEDS ORDERED: Lactated Ringers 1,000 ML IV ONE ×3 (01:30→11:50)
[2020-03-18] MEDS: Metoclopramide 10 MG/2 ML SDV IV SCH ×4 (04:01→21:20)
[2020-03-18] MEDS: Pantoprazole 40 MG Tab.CR PO SCH ×2 (07:13→16:15)
[2020-03-18] MEDS: Dextrose 5%-Lactated Ringers 1,000 ML IV SCH ×3 (08:27→16:50)
[2020-03-18] MEDS: Losartan 50 MG Tab PO SCH (08:46)
[2020-03-18] MEDS: Spironolactone 25 MG Tab PO SCH (09:15)
[2020-03-18] MEDS: Azithromycin 250 MG Tab PO SCH ×2 (09:15→21:20)
[2020-03-18] MEDS: Furosemide 20 MG Tab PO SCH (09:15)
[2020-03-18] MEDS: Bisacodyl 5 MG Tab PO SCH ×3 (09:16→21:03)
--- NOTE | 2020-03-18 14:16 | PN ---
DATE OF SERVICE: 03/18/2020 The patient has been afebrile with stable vital signs. He continues to have quite a bit in the way of abdominal distention, passing flatus, no bowel movements as of yet. Continue to augment GI tract motility. His urine output is fairly low and creatinine did bump up to 2.5. He will get a liter of LR presently this morning over an hour and then we will bump up 200 mL an hour, and with his albumin something a little bit on the low side, we will give him some additional albumin today as well in anticipation of ongoing losses with the paracentesis series that he is undergoing. King Holt MD /[id number]
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
--- NOTE | 2020-03-18 19:08 | PCM.OPNOTE ---
- General Post-Op/Procedure Note Date of Surgery/Procedure: 03/18/20 Operative Procedure(s): Diagnostic paracentesis Pre Op Diagnosis: Abdominal ascites; evaluate for spontaneous bacterial peritonitis Post-Op Diagnosis: Same Anesthesia Technique: Local Primary Surgeon: Charlie Luna Complications: None Condition: Fair Free Text/Narrative:: Mr. Erickson is a 59-year-old gentleman with known hepatic cirrhosis and abdominal ascites. He has developed acute kidney injury, possible hepatorenal syndrome and requires evaluation for spontaneous bacterial peritonitis. Risks and goals of the procedure were reviewed with the patient and he gave informed consent to proceed. He was placed in a supine position, ultrasound had marked appropriate spot for paracentesis with a good pocket of ascitic fluid. Using sterile technique and local anesthetic with lidocaine needle was passed through the abdominal wall and into the abdominal cavity. 25 cc of ascitic fluid were removed for analysis including; culture and Gram stain, albumin, total protein, glucose, and amylase. Procedure was otherwise completed without complication.
[2020-03-18] MEDS: HYDROmorphone/Normal Saline 15 MG/30 ML PCA IV PRN (19:09)
[2020-03-18] MEDS ORDERED: Octreotide 500 MCG in Sodium Chloride 0.9% 497.5 ML IV SCH (19:45)
[2020-03-18] MEDS: Norepinephrine 4 MG in Dextrose 5% in Water 246 ML IV SCH ×2 (21:02)
[2020-03-18] MEDS: Midodrine 5 MG Tab PO SCH (21:03)
[2020-03-18] MEDS: cefTRIAXone 1 GM in Sodium Chloride 0.9% 50 ML IV SCH (23:04)
[2020-03-19] MEDS: Dextrose 5%-Lactated Ringers 1,000 ML IV SCH (01:00)
[2020-03-19] MEDS: Norepinephrine 4 MG in Dextrose 5% in Water 246 ML IV SCH ×4 (08:36→16:42)
[2020-03-19] MEDS: Bisacodyl 5 MG Tab PO SCH ×3 (08:44→20:25)
[2020-03-19] MEDS: Pantoprazole 40 MG Tab.CR PO SCH ×2 (08:45→16:45)
[2020-03-19] MEDS: Azithromycin 250 MG Tab PO SCH ×2 (08:45→20:26)
--- NOTE | 2020-03-19 10:34 | US ---
Renal Comp CLINICAL HISTORY: Acute renal injury. COMPARISON: CT abdomen 03/16/2020. TECHNIQUE: Multiple sonographic images were obtained through the kidneys in the sagittal and transverse projections. Right kidney measures 13.0 x 6.5 x 5.0 cm. Cortical thickness 1.6 cm.. Left kidney measures 10.5 x 5.0 x 6.1 cm. Cortical thickness is 2 cm.. No evidence of mass, stones or hydronephrosis. Soliz catheter in the bladder. IMPRESSION: Essentially negative renal ultrasound
--- NOTE | 2020-03-19 11:15 | PCM.CONSN ---
- General Info Date of Service: 03/19/20 Subjective Update: No acute events overnight. Excellent response to the norepinephrine infusion. Urine output has been excellent since the infusion was started. Patient feels distended in the abdomen but does not report significant pain. Kidney function is stable based on creatinine level. No significant diarrhea. Patient is mildly lethargic but able to communicate fairly effectively. Antibiotics were started yesterday with concern for possible urinary tract infection. Functional Status: Reports: Pain Controlled, Tolerating Diet - Review of Systems General: Denies: Fever Gastrointestinal: Reports: Abdominal Pain - Patient Data Vitals - Most Recent: Last Vital Signs Temp 36.2 C 03/19/20 11:00 Pulse 73 03/19/20 11:00 Resp 10 L 03/19/20 11:00 BP 114/66 03/19/20 11:00 Pulse Ox 95 03/19/20 11:00 Weight - Most Recent: 103 kg I&O - Last 24 Hours: Intake & Output 03/18/20 03/19/20 03/19/20 22:59 06:59 14:59 Intake Total 2615 1278 Output Total 25 1075 950 Balance 2590 203 -950 Lab Results Last 24 Hours: Laboratory Results - last 24 hr 03/18/20 03/18/20 03/18/20 Range/Units 15:49 16:00 18:30 WBC (4.5-11.0) K/uL RBC (4.30-5.90) M/uL Hgb (12.0-15.0) g/dL Hct (40.0-54.0) % MCV (80-98) fL MCH (27-31) pg MCHC (32-36) % Plt Count (150-400) K/uL PT 16.1 H (9.5-12.0) sec INR 1.49 H (0.80-1.20) Sodium (140-148) mmol/L Potassium (3.6-5.2) mmol/L Chloride (100-108) mmol/L Carbon Dioxide (21-32) mmol/L Anion Gap (5.0-14.0) mmol/L BUN (7-18) mg/dL Creatinine (0.8-1.3) mg/dL Est Cr Clr Drug Dosing mL/min Estimated GFR (MDRD) (>60) Glucose (74-106) mg/dL Calcium (8.5-10.1) mg/dL Phosphorus (2.5-4.9) mg/dL Magnesium (1.8-2.4) mg/dL Total Bilirubin (0.2-1.0) mg/dL AST (15-37) U/L ALT (12-78) U/L Alkaline Phosphatase (46-116) U/L Total Protein (6.4-8.2) g/dL Albumin (3.4-5.0) g/dL Globulin (2.3-3.5) g/dL Albumin/Globulin Ratio (1.2-2.2) Urine Color [place] A (YELLOW) Urine Appearance Cloudy A (CLEAR) Urine pH 5.0 (5.0-8.0) Ur Specific [place] 1.025 (1.008-1.030) Urine Protein 100 H (NEGATIVE) mg/dL Urine Glucose (UA) Negative (NEGATIVE) mg/dL Urine Ketones 15 H (NEGATIVE) mg/dL Urine Occult Blood Large H (NEGATIVE) Urine Nitrite Negative (NEGATIVE) Urine Bilirubin Moderate H (NEGATIVE) Urine Urobilinogen 1.0 (0.2-1.0) EU/dL Ur Leukocyte Esterase Small H (NEGATIVE) Urine RBC 30-40 H (0-5) Urine WBC 10-20 H (0-5) Ur Epithelial Cells Few Amorphous Sediment Not seen Urine Bacteria Many Urine Mucus Few Fluid Type Peritoneal fluid Fluid WBC /ul Fluid RBC /ul Fluid Diff Comment Fluid Mononuclear Cell % Fl Polymorphonucl Cell % Fluid Glucose 129 mg/dL Fluid Total Protein 2.4 g/dL Fluid Amylase U/L 03/18/20 03/18/20 03/18/20 Range/Units 18:30 18:30 18:30 WBC (4.5-11.0) K/uL RBC (4.30-5.90) M/uL Hgb (12.0-15.0) g/dL Hct (40.0-54.0) % MCV (80-98) fL MCH (27-31) pg MCHC (32-36) % Plt Count (150-400) K/uL PT (9.5-12.0) sec INR (0.80-1.20) Sodium (140-148) mmol/L Potassium (3.6-5.2) mmol/L Chloride (100-108) mmol/L Carbon Dioxide (21-32) mmol/L Anion Gap (5.0-14.0) mmol/L BUN (7-18) mg/dL Creatinine (0.8-1.3) mg/dL Est Cr Clr Drug Dosing mL/min Estimated GFR (MDRD) (>60) Glucose (74-106) mg/dL Calcium (8.5-10.1) mg/dL Phosphorus (2.5-4.9) mg/dL Magnesium (1.8-2.4) mg/dL Total Bilirubin (0.2-1.0) mg/dL AST (15-37) U/L ALT (12-78) U/L Alkaline Phosphatase (46-116) U/L Total Protein (6.4-8.2) g/dL Albumin 0.9 L (3.4-5.0) g/dL Globulin (2.3-3.5) g/dL Albumin/Globulin Ratio (1.2-2.2) Urine Color (YELLOW) Urine Appearance (CLEAR) Urine pH (5.0-8.0) Ur Specific [place] (1.008-1.030) Urine Protein (NEGATIVE) mg/dL Urine Glucose (UA) (NEGATIVE) mg/dL Urine Ketones (NEGATIVE) mg/dL Urine Occult Blood (NEGATIVE) Urine Nitrite (NEGATIVE) Urine Bilirubin (NEGATIVE) Urine Urobilinogen (0.2-1.0) EU/dL Ur Leukocyte Esterase (NEGATIVE) Urine RBC (0-5) Urine WBC (0-5) Ur Epithelial Cells Amorphous Sediment Urine Bacteria Urine Mucus Fluid Type Peritoneal fluid Peritoneal fluid Fluid WBC 238 /ul Fluid RBC 2984 /ul Fluid Diff Comment Peritoneal fluid Fluid Mononuclear Cell 38 % Fl Polymorphonucl Cell 62 % Fluid Glucose mg/dL Fluid Total Protein g/dL Fluid Amylase 25 U/L 03/19/20 03/19/20 03/19/20 Range/Units 04:20 04:20 04:20 WBC 8.1 (4.5-11.0) K/uL RBC 2.78 L (4.30-5.90) M/uL Hgb 10.0 L (12.0-15.0) g/dL Hct 29.4 L (40.0-54.0) % MCV 106 H (80-98) fL MCH 36 H (27-31) pg MCHC 34 (32-36) % Plt Count 115 L (150-400) K/uL PT 17.0 H (9.5-12.0) sec INR 1.57 H (0.80-1.20) Sodium 132 L (140-148) mmol/L Potassium 4.4 (3.6-5.2) mmol/L Chloride 102 (100-108) mmol/L Carbon Dioxide 19 L (21-32) mmol/L Anion Gap 15.4 H (5.0-14.0) mmol/L BUN 32 H (7-18) mg/dL Creatinine 2.3 H (0.8-1.3) mg/dL Est Cr Clr Drug Dosing 37.02 mL/min Estimated GFR (MDRD) 29 L (>60) Glucose 142 H (74-106) mg/dL Calcium 8.5 (8.5-10.1) mg/dL Phosphorus 4.4 (2.5-4.9) mg/dL Magnesium 1.7 L (1.8-2.4) mg/dL Total Bilirubin 3.0 H (0.2-1.0) mg/dL AST 53 H (15-37) U/L ALT 39 (12-78) U/L Alkaline Phosphatase 44 L (46-116) U/L Total Protein 6.3 L (6.4-8.2) g/dL Albumin 3.3 L (3.4-5.0) g/dL Globulin 3.0 (2.3-3.5) g/dL Albumin/Globulin Ratio 1.1 L (1.2-2.2) Urine Color (YELLOW) Urine Appearance (CLEAR) Urine pH (5.0-8.0) Ur Specific [place] (1.008-1.030) Urine Protein (NEGATIVE) mg/dL Urine Glucose (UA) (NEGATIVE) mg/dL Urine Ketones (NEGATIVE) mg/dL Urine Occult Blood (NEGATIVE) Urine Nitrite (NEGATIVE) Urine Bilirubin (NEGATIVE) Urine Urobilinogen (0.2-1.0) EU/dL Ur Leukocyte Esterase (NEGATIVE) Urine RBC (0-5) Urine WBC (0-5) Ur Epithelial Cells Amorphous Sediment Urine Bacteria Urine Mucus Fluid Type Fluid WBC /ul Fluid RBC /ul Fluid Diff Comment Fluid Mononuclear Cell % Fl Polymorphonucl Cell % Fluid Glucose mg/dL Fluid Total Protein g/dL Fluid Amylase U/L Misael Results Last 24 Hours: Microbiology 03/18/20 18:30 Gram Stain - Final Abdominal Fluid - Aspirate Med Orders - Current: Current Medications Azithromycin (Zithromax) 250 mg PO BID [facility] Last Admin: 03/19/20 08:45 Dose: 250 mg Documented by: Bisacodyl (Dulcolax) 10 mg PO TID [facility] Last Admin: 03/19/20 08:44 Dose: 10 mg Documented by: Hydromorphone HCl (Dilaudid [employer] 15 Mg In Ns 30 Ml) 0 mg IV ASDIRECTED PRN; Protocol 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 Last Admin: 03/18/20 19:09 Dose: 15 mg Documented by: Dextrose/Lactated Ringer's (Dextrose 5%-Lactated Ringers) 1,000 mls @ 0 mls/hr IV ASDIRECTED [facility] Last Admin: 03/19/20 01:00 Dose: 200 mls/hr Documented by: Norepinephrine Bitartrate 4 mg (/ Dextrose/Water) 250 mls @ 7.5 mls/hr IV TITRATE [facility]; Protocol Last Admin: 03/19/20 08:36 Dose: 8 mcg/min, 30 mls/hr Documented by: Ceftriaxone Sodium 1 gm/ (Sodium Chloride) 50 mls @ 100 mls/hr IV Q24H [facility] Last Admin: 03/18/20 23:04 Dose: 100 mls/hr Documented by: Albumin Human (Albumin 25%) 25 gm in 100 mls @ 25 mls/hr IV Q4H [facility] Stop: 03/20/20 03:14 Metoclopramide HCl (Reglan) 10 mg IV Q6H [facility] Last Admin: 03/18/20 21:20 Dose: 10 mg Documented by: Midodrine (Midodrine) 7.5 mg PO Q8H [facility] Last Admin: 03/18/20 21:03 Dose: Not Given Documented by: Naloxone HCl (Narcan) 0.1 mg IV ASDIRECTED PRN PRN Reason: decreased respiratory rate Ondansetron HCl (Zofran) 4 mg IVPUSH Q4H PRN PRN Reason: Nausea Pantoprazole Sodium (Protonix) 40 mg PO BIDAC [facility] Last Admin: 03/19/20 08:45 Dose: 40 mg Documented by: Discontinued Medications Bisacodyl (Dulcolax) 10 mg RECTAL ONETIME ONE Stop: 03/16/20 15:31 Last Admin: 03/16/20 16:15 Dose: 10 mg Documented by: Fentanyl (Sublimaze) Confirm Administered Dose 100 mcg .ROUTE .STK-MED ONE Stop: 03/16/20 09:13 Furosemide (Lasix) 20 mg PO DAILY [facility] Last Admin: 03/18/20 09:15 Dose: 20 mg Documented by: Albumin Human (Albumin 25%) 25 gm in 100 mls @ 25 mls/hr IV ONETIME ONE Stop: 03/16/20 13:59 Last Admin: 03/16/20 14:32 Dose: Not Given Documented by: Sodium Chloride (Normal Saline) 1,000 mls @ 100 mls/hr IV ASDIRECTED [facility] Last Admin: 03/16/20 08:18 Dose: 100 mls/hr Documented by: Dextrose/Lactated Ringer's (Dextrose 5%-Lactated Ringers) 1,000 mls @ 75 mls/hr IV ASDIRECTED [facility] Last Admin: 03/17/20 18:04 Dose: 75 mls/hr Documented by: Azithromycin 250 mg/ Sodium (Chloride) 150 mls @ 150 mls/hr IV ONETIME ONE Stop: 03/16/20 16:59 Last Admin: 03/16/20 16:29 Dose: 150 mls/hr Documented by: Albumin Human (Albumin 25%) 25 gm in 100 mls @ 25 mls/hr IV ONETIME ONE Stop: 03/16/20 21:59 Last Admin: 03/16/20 18:14 Dose: 25 mls/hr Documented by: Albumin Human (Albumin 25%) 25 gm in 100 mls @ 25 mls/hr IV Q4H [facility] Stop: 03/17/20 17:59 Last Admin: 03/17/20 14:56 Dose: 25 mls/hr Documented by: Lactated Ringer's (Ringers, Lactated) 1,000 mls @ 750 mls/hr IV BOLUS ONE Stop: 03/18/20 02:49 Last Admin: 03/18/20 01:38 Dose: 750 mls/hr Documented by: Lactated Ringer's (Ringers, Lactated) 1,000 mls @ 999 mls/hr IV BOLUS ONE Stop: 03/18/20 07:39 Last Admin: 03/18/20 07:06 Dose: 999 mls/hr Documented by: Albumin Human (Albumin 25%) 25 gm in 100 mls @ 25 mls/hr IV ONETIME ONE Stop: 03/18/20 13:59 Last Admin: 03/18/20 09:16 Dose: 25 mls/hr Documented by: Lactated Ringer's (Ringers, Lactated) 1,000 mls @ 999 mls/hr IV ONETIME ONE Stop: 03/18/20 12:50 Last Admin: 03/18/20 11:50 Dose: 999 mls/hr Documented by: Albumin Human (Albumin 25%) 25 gm in 100 mls @ 25 mls/hr IV ONETIME ONE Stop: 03/18/20 19:43 Last Admin: 03/18/20 16:13 Dose: 25 mls/hr Documented by: Albumin Human (Albumin 25%) 25 gm in 100 mls @ 25 mls/hr IV ONETIME ONE Stop: 03/18/20 23:44 Last Admin: 03/18/20 20:46 Dose: 25 mls/hr Documented by: Albumin Human (Albumin 25%) 25 gm in 100 mls @ 25 mls/hr IV ONETIME ONE Stop: 03/19/20 03:49 Last Admin: 03/19/20 00:58 Dose: 25 mls/hr Documented by: Octreotide Acetate 500 mcg/ (Sodium Chloride) 500 mls @ 50 mls/hr IV Q10H [facility] Lidocaine HCl (Xylocaine 2% Jelly) 10 ml MUCMEM ONETIME ONE Stop: 03/17/20 18:55 Last Admin: 03/17/20 19:12 Dose: 10 ml Documented by: Lidocaine HCl (Xylocaine 2% Jelly) Confirm Administered Dose 10 ml .ROUTE .STK- MED ONE Stop: 03/17/20 19:05 Last Admin: 03/17/20 19:11 Dose: Not Given Documented by: Losartan Potassium (Cozaar) 100 mg PO DAILY [facility] Last Admin: 03/18/20 08:46 Dose: Not Given Documented by: Midazolam HCl (Versed 1 Mg/Ml) Confirm Administered Dose 2 mg .ROUTE .STK-MED ONE Stop: 03/16/20 09:13 Pantoprazole Sodium (Protonix Iv) 40 mg IVPUSH ONETIME ONE Stop: 03/16/20 10:55 Last Admin: 03/16/20 11:00 Dose: 40 mg Documented by: Pantoprazole Sodium (Protonix Iv) 40 mg IV Q12H [facility] Last Admin: 03/17/20 03:44 Dose: 40 mg Documented by: Propofol (Diprivan 20 Ml) Confirm Administered Dose 200 mg .ROUTE .STK-MED ONE Stop: 03/16/20 09:13 Propofol (Diprivan 20 Ml) Confirm Administered Dose 200 mg .ROUTE .STK-MED ONE Stop: 03/16/20 10:12 Spironolactone (Aldactone) 50 mg PO DAILY [facility] Last Admin: 03/18/20 09:15 Dose: 50 mg Documented by: - Exam Quality Assessment: No: Supplemental Oxygen General: Alert, Oriented, Cooperative, No Acute Distress Lungs: Clear to Auscultation, Normal Respiratory Effort Cardiovascular: Regular Rate, Regular Rhythm GI/Abdominal Exam: Distended, Tender (mild generalized ). No: Soft (firm) Extremities: Pedal Edema. No: Increased Warmth Skin: Warm, Dry Psy/Mental Status: Alert, Normal Affect. No: Agitated Sepsis Event Note - Evaluation Sepsis Screening Result: No Definite Risk - Focused Exam Vital Signs: Vital Signs Temp Pulse Resp BP Pulse Ox 03/19/20 11:00 36.2 C 73 10 L 114/66 95 03/19/20 10:00 72 118/67 03/19/20 09:00 75 9 L 115/63 94 L 03/19/20 08:00 73 6 L 91/58 L 95 03/19/20 07:00 36.1 C 77 7 L 97/49 L 94 L 03/19/20 06:00 7 L 104/57 L 95 03/19/20 05:00 13 129/65 94 L 03/19/20 04:00 13 113/73 94 L 03/19/20 03:00 10 L 115/62 93 L 03/19/20 02:00 10 L 111/62 97 03/19/20 01:00 10 L 115/64 96 03/19/20 00:00 37.0 C 10 L 110/70 95 Consult PN Assessment/Plan Procedures: Procedures ABD PARACENTESIS (02/16/20) ABD PARACENTESIS W/IMAGING (03/08/20) ACUTE HEPATITIS PANEL (02/08/20) AG DETECT NOS IA MULT (03/08/20) ALPHA-FETOPROTEIN SERUM (03/08/20) ASSAY OF AMMONIA (02/08/20) ASSAY OF AMYLASE (02/16/20) ASSAY OF PROTEIN OTHER (02/16/20) ASSAY PH BODY FLUID NOS (02/16/20) BODY FLUID CELL COUNT (02/16/20) COMPLETE CBC W/AUTO DIFF WBC (02/08/20) COMPREHEN METABOLIC PANEL (02/08/20) CULTURE OTHR SPECIMN AEROBIC (02/16/20) CYTOPATH CELL ENHANCE TECH (03/08/20) EMERGENCY DEPT VISIT (09/20/14) FUNGUS ISOLATION CULTURE (02/16/20) GLUCOSE OTHER FLUID (02/16/20) HEPATITIS A ANTIBODY (03/08/20) IMMUNOASSAY INFECTIOUS AGENT (03/08/20) LACTATE (LD) (LDH) ENZYME (02/16/20) METABOLIC PANEL TOTAL CA (03/08/20) MYCOBACTERIA CULTURE (02/16/20) PROTHROMBIN TIME (02/08/20) ROUTINE VENIPUNCTURE (03/08/20) SMEAR FLUORESCENT/ACID STAI (02/16/20) SMEAR GRAM STAIN (02/16/20) SPECIMEN INFECT AGNT CONCNTJ (02/16/20) THER/PROPH/DIAG IV INF ADDON (03/08/20) THER/PROPH/DIAG IV INF INIT (03/08/20) TISSUE EXAM BY PATHOLOGIST (03/08/20) Problem List Initiated/Reviewed/Updated: Yes My Orders Last 24 Hours: My Active Orders 03/19/20 11:15 Albumin Human [Albumin 25%] 25 gm in 100 ml IV Q4H 03/19/20 12:00 Magnesium Sulfate/Water [Magnesium Sulfate in Water Premix] 2 gm IV ONETIME ONE 03/19/20 18:45 Insert Soliz Catheter [Insert Urinary Catheter] [OM.PC] Q24H 03/20/20 05:00 BASIC METABOLIC PANEL,BMP [CHEM] Timed CBC W/O DIFF,HEMOGRAM [HEME] Timed (1) Plan: ASSESSMENT AND RECOMMENDATIONS ACUTE KIDNEY INJURY-history of underlying cirrhosis raises the possibility of hepatorenal syndrome. Kidney function stable based on labs but urine output has been much better. Tolerating norepinephrine infusion and midodrine was started today. -Closely monitor urine output and renal function -Hold ARB, furosemide, and Spironolactone -Albumin 1 g/kg daily for 2 days -Trial of midodrine, wean norepinephrine as able Acute cystitis, suspected-urinalysis possibly suggestive of infection and he has been started on antibiotics. -Continue ceftriaxone -Follow-up culture HEPATIC CIRRHOSIS-secondary to hepatitis C infection. Recent rapidly recurrent ascites requiring frequent paracentesis. Calculated Meld score of 24, Meldna of 26. -Ammonia level in the morning -Repeat paracentesis as indicated Jose Boateng MD
[2020-03-19] MEDS: Metoclopramide 10 MG/2 ML SDV IV SCH ×4 (11:18→21:40)
[2020-03-19] MEDS: Midodrine 5 MG Tab PO SCH ×3 (11:18→20:26)
[2020-03-19] MEDS ORDERED: Magnesium Sulfate/Water 2 GM/50 ML Premix Bag IV ONE (12:00)
[2020-03-19] MEDS ORDERED: Magnesium Sulfate/Water 2 GM/50 ML BAG IV ONE (12:00)
--- NOTE | 2020-03-19 13:55 | PN ---
DATE OF SERVICE: 03/19/2020 The patient became progressively altered yesterday and was transferred down to the ICU. With the assistance of Dr. Luna, we raised up his blood pressure with norepinephrine, as well as administering quite a bit of albumin. As this was done, his urine output is now going quite satisfactorily. His abdomen was tensely distended. Most of this has to do with air and stool in the GI tract. He is scheduled for a repeat paracentesis this Thursday, which we will leave on the schedule for now. At this point, the hepatorenal syndrome appears to be improving somewhat with adequate urine output. We will continue to follow the case and assist with the hospitalist in terms of ongoing management. King Holt MD /[id number]
--- NOTE | 2020-03-19 14:22 | PN ---
DATE OF SERVICE: 03/16/2020 The patient underwent earlier paracentesis for his ascites with 5 L being removed without complication. Per the Gastroenterology recommendation, the patient underwent subsequent upper and lower endoscopy. Biopsies were obtained from the upper endoscopy, as well as polypectomies undertaken with the colonoscopy, so a bit of air was insufflated into the GI tract. There were no evident complications during the procedure. In the recovery area following the surgery, the patient had been complaining of marked abdominal pain and distention. We therefore obtained a CT scan that showed a large amount of GI tract distention but no free air, i.e., there were no signs of perforation. Given the amount of discomfort, the plan will be to proceed with admission of the patient with pain control and reinitiation of some bowel stimulation and following his overall clinical course. King Holt MD /[id number]
[2020-03-19] MEDS: cefTRIAXone 1 GM in Sodium Chloride 0.9% 50 ML IV SCH (22:53)
[2020-03-20] MEDS: Midodrine 5 MG Tab PO SCH ×4 (03:49→21:13)
[2020-03-20] MEDS: Metoclopramide 10 MG/2 ML SDV IV SCH ×4 (03:49→21:41)
[2020-03-20] MEDS: Norepinephrine 4 MG in Dextrose 5% in Water 246 ML IV SCH ×2 (04:42)
[2020-03-20] MEDS: Pantoprazole 40 MG Tab.CR PO SCH ×2 (07:25→16:16)
[2020-03-20] MEDS: Azithromycin 250 MG Tab PO SCH ×2 (09:24→21:13)
[2020-03-20] MEDS: Bisacodyl 5 MG Tab PO SCH ×3 (09:24→21:13)
[2020-03-20] MEDS: Lactulose Soln 10 GM/15 ML 15 ML UD Cup PO SCH ×2 (09:24→21:13)
--- NOTE | 2020-03-20 09:45 | PCM.CONSN ---
- General Info Date of Service: 03/20/20 Subjective Update: No acute events overnight. Good diuresis throughout the evening and yesterday. We have been able to wean down the norepinephrine and stop it later in the day. Kidney function is back to normal today. He continues to feel that his abdomen is distended and that he has mild to moderate pain. He is passing gas but has not had a bowel movement yet. He remains somewhat weak and has not been very active. He has not had any fevers. Functional Status: Reports: Pain Controlled, Tolerating Diet - Review of Systems General: Reports: Weakness. Denies: Fever Gastrointestinal: Reports: Abdominal Pain Neurological: Reports: Confusion - Patient Data Vitals - Most Recent: Last Vital Signs Temp 35.5 C L 03/20/20 07:00 Pulse 76 03/20/20 09:00 Resp 10 L 03/20/20 09:00 BP 100/54 L 03/20/20 09:00 Pulse Ox 95 03/20/20 09:00 Weight - Most Recent: 103 kg I&O - Last 24 Hours: Intake & Output 03/19/20 03/20/20 03/20/20 22:59 06:59 14:59 Intake Total 731 922 Output Total 790 900 Balance -59 22 Lab Results Last 24 Hours: Laboratory Results - last 24 hr 03/20/20 03/20/20 03/20/20 Range/Units 04:15 04:15 04:15 WBC 7.1 (4.5-11.0) K/uL RBC 2.73 L (4.30-5.90) M/uL Hgb 9.9 L (12.0-15.0) g/dL Hct 28.7 L (40.0-54.0) % MCV 105 H (80-98) fL MCH 36 H (27-31) pg MCHC 35 (32-36) % Plt Count 127 L (150-400) K/uL Sodium 135 L (140-148) mmol/L Potassium 4.1 (3.6-5.2) mmol/L Chloride 104 (100-108) mmol/L Carbon Dioxide 20 L (21-32) mmol/L Anion Gap 15.1 H (5.0-14.0) mmol/L BUN 22 H (7-18) mg/dL Creatinine 1.1 D (0.8-1.3) mg/dL Est Cr Clr Drug Dosing 77.51 mL/min Estimated GFR (MDRD) > 60 (>60) Glucose 113 H (74-106) mg/dL Calcium 8.7 (8.5-10.1) mg/dL Ammonia 54 H (11-32) mmol/L Miseal Results Last 24 Hours: Microbiology 03/18/20 22:00 Urine Culture - Preliminary Urine, Soliz Cath (Indwelling) NO GROWTH AFTER 1 DAY 03/18/20 18:30 Gram Stain - Final Abdominal Fluid - Aspirate Body Fluid Culture - Preliminary NO GROWTH AFTER 1 DAY Med Orders - Current: Current Medications Azithromycin (Zithromax) 250 mg PO BID [facility] Last Admin: 03/20/20 09:24 Dose: 250 mg Documented by: Bisacodyl (Dulcolax) 10 mg PO TID [facility] Last Admin: 03/20/20 09:24 Dose: 10 mg Documented by: Hydromorphone HCl (Dilaudid Internal Combustion Engineer 15 Mg In Ns 30 Ml) 0 mg IV ASDIRECTED PRN; Protocol PRN Reason: HEMATOLOGY SPECIALIST PAIN CONTROL Last Admin: 03/18/20 19:09 Dose: 15 mg Documented by: Dextrose/Lactated Ringer's (Dextrose 5%-Lactated Ringers) 1,000 mls @ 0 mls/hr IV ASDIRECTED [facility] Last Admin: 03/19/20 01:00 Dose: 200 mls/hr Documented by: Norepinephrine Bitartrate 4 mg (/ Dextrose/Water) 250 mls @ 7.5 mls/hr IV TITRATE [facility]; Protocol Last Titration: 03/20/20 09:23 Dose: 2 mcg/min, 7.5 mls/hr Documented by: Ceftriaxone Sodium 1 gm/ (Sodium Chloride) 50 mls @ 100 mls/hr IV Q24H [facility] Last Admin: 03/19/20 22:53 Dose: 100 mls/hr Documented by: Albumin Human (Albumin 25%) 25 gm in 100 mls @ 25 mls/hr IV Q8H [facility] Stop: 03/20/20 21:59 Lactulose (Chronulac) 10 gm PO BID [facility] Last Admin: 03/20/20 09:24 Dose: 10 gm Documented by: Metoclopramide HCl (Reglan) 10 mg IV Q6H [facility] Last Admin: 03/20/20 09:25 Dose: 10 mg Documented by: Midodrine (Midodrine) 7.5 mg PO TID [facility] Last Admin: 03/20/20 09:24 Dose: 7.5 mg Documented by: Naloxone HCl (Narcan) 0.1 mg IV ASDIRECTED PRN PRN Reason: decreased respiratory rate Ondansetron HCl (Zofran) 4 mg IVPUSH Q4H PRN PRN Reason: Nausea Pantoprazole Sodium (Protonix) 40 mg PO BIDAC [facility] Last Admin: 03/20/20 07:25 Dose: 40 mg Documented by: Discontinued Medications Bisacodyl (Dulcolax) 10 mg RECTAL ONETIME ONE Stop: 03/16/20 15:31 Last Admin: 03/16/20 16:15 Dose: 10 mg Documented by: Fentanyl (Sublimaze) Confirm Administered Dose 100 mcg .ROUTE .STK-MED ONE Stop: 03/16/20 09:13 Furosemide (Lasix) 20 mg PO DAILY [facility] Last Admin: 03/18/20 09:15 Dose: 20 mg Documented by: Albumin Human (Albumin 25%) 25 gm in 100 mls @ 25 mls/hr IV ONETIME ONE Stop: 03/16/20 13:59 Last Admin: 03/16/20 14:32 Dose: Not Given Documented by: Sodium Chloride (Normal Saline) 1,000 mls @ 100 mls/hr IV ASDIRECTED [facility] Last Admin: 03/16/20 08:18 Dose: 100 mls/hr Documented by: Dextrose/Lactated Ringer's (Dextrose 5%-Lactated Ringers) 1,000 mls @ 75 mls/hr IV ASDIRECTED [facility] Last Admin: 03/17/20 18:04 Dose: 75 mls/hr Documented by: Azithromycin 250 mg/ Sodium (Chloride) 150 mls @ 150 mls/hr IV ONETIME ONE Stop: 03/16/20 16:59 Last Admin: 03/16/20 16:29 Dose: 150 mls/hr Documented by: Albumin Human (Albumin 25%) 25 gm in 100 mls @ 25 mls/hr IV ONETIME ONE Stop: 03/16/20 21:59 Last Admin: 03/16/20 18:14 Dose: 25 mls/hr Documented by: Albumin Human (Albumin 25%) 25 gm in 100 mls @ 25 mls/hr IV Q4H [facility] Stop: 03/17/20 17:59 Last Admin: 03/17/20 14:56 Dose: 25 mls/hr Documented by: Lactated Ringer's (Ringers, Lactated) 1,000 mls @ 750 mls/hr IV BOLUS ONE Stop: 03/18/20 02:49 Last Admin: 03/18/20 01:38 Dose: 750 mls/hr Documented by: Lactated Ringer's (Ringers, Lactated) 1,000 mls @ 999 mls/hr IV BOLUS ONE Stop: 03/18/20 07:39 Last Admin: 03/18/20 07:06 Dose: 999 mls/hr Documented by: Albumin Human (Albumin 25%) 25 gm in 100 mls @ 25 mls/hr IV ONETIME ONE Stop: 03/18/20 13:59 Last Admin: 03/18/20 09:16 Dose: 25 mls/hr Documented by: Lactated Ringer's (Ringers, Lactated) 1,000 mls @ 999 mls/hr IV ONETIME ONE Stop: 03/18/20 12:50 Last Admin: 03/18/20 11:50 Dose: 999 mls/hr Documented by: Albumin Human (Albumin 25%) 25 gm in 100 mls @ 25 mls/hr IV ONETIME ONE Stop: 03/18/20 19:43 Last Admin: 03/18/20 16:13 Dose: 25 mls/hr Documented by: Albumin Human (Albumin 25%) 25 gm in 100 mls @ 25 mls/hr IV ONETIME ONE Stop: 03/18/20 23:44 Last Admin: 03/18/20 20:46 Dose: 25 mls/hr Documented by: Albumin Human (Albumin 25%) 25 gm in 100 mls @ 25 mls/hr IV ONETIME ONE Stop: 03/19/20 03:49 Last Admin: 03/19/20 00:58 Dose: 25 mls/hr Documented by: Octreotide Acetate 500 mcg/ (Sodium Chloride) 500 mls @ 50 mls/hr IV Q10H [facility] Albumin Human (Albumin 25%) 25 gm in 100 mls @ 25 mls/hr IV Q4H [facility] Stop: 03/20/20 03:59 Last Admin: 03/20/20 00:24 Dose: 25 mls/hr Documented by: Magnesium Sulfate (Magnesium Sulfate In Water Premix) 2 gm in 50 mls @ 12.5 mls/hr IV ONETIME ONE Stop: 03/19/20 15:59 Last Admin: 03/19/20 11:24 Dose: 12.5 mls/hr Documented by: Lidocaine HCl (Xylocaine 2% Jelly) 10 ml MUCMEM ONETIME ONE Stop: 03/17/20 18:55 Last Admin: 03/17/20 19:12 Dose: 10 ml Documented by: Lidocaine HCl (Xylocaine 2% Jelly) Confirm Administered Dose 10 ml .ROUTE .STK- MED ONE Stop: 03/17/20 19:05 Last Admin: 03/17/20 19:11 Dose: Not Given Documented by: Losartan Potassium (Cozaar) 100 mg PO DAILY [facility] Last Admin: 03/18/20 08:46 Dose: Not Given Documented by: Magnesium Sulfate (Magnesium Sulfate In Water Premix) 2 gm IV ONETIME ONE Stop: 03/19/20 12:01 Midazolam HCl (Versed 1 Mg/Ml) Confirm Administered Dose 2 mg .ROUTE .STK-MED ONE Stop: 03/16/20 09:13 Midodrine (Midodrine) 7.5 mg PO Q8H [facility] Last Admin: 03/20/20 03:49 Dose: 7.5 mg Documented by: Pantoprazole Sodium (Protonix Iv) 40 mg IVPUSH ONETIME ONE Stop: 03/16/20 10:55 Last Admin: 03/16/20 11:00 Dose: 40 mg Documented by: Pantoprazole Sodium (Protonix Iv) 40 mg IV Q12H [facility] Last Admin: 03/17/20 03:44 Dose: 40 mg Documented by: Propofol (Diprivan 20 Ml) Confirm Administered Dose 200 mg .ROUTE .STK-MED ONE Stop: 03/16/20 09:13 Propofol (Diprivan 20 Ml) Confirm Administered Dose 200 mg .ROUTE .STK-MED ONE Stop: 03/16/20 10:12 Spironolactone (Aldactone) 50 mg PO DAILY [facility] Last Admin: 03/18/20 09:15 Dose: 50 mg Documented by: - Exam Quality Assessment: No: Supplemental Oxygen General: Alert, Cooperative, No Acute Distress HEENT: Pupils Equal Lungs: Clear to Auscultation, Normal Respiratory Effort. No: Wheezing Cardiovascular: Regular Rate, Regular Rhythm GI/Abdominal Exam: Soft, Distended, Tender (mild generalized ), Abnormal Bowel Sounds (tympanic ) Extremities: Pedal Edema. No: Increased Warmth Skin: Warm, Dry Psy/Mental Status: Alert. No: Agitated Sepsis Event Note - Evaluation Sepsis Screening Result: No Definite Risk - Focused Exam Vital Signs: Vital Signs Temp Pulse Resp BP Pulse Ox 03/20/20 09:00 76 10 L 100/54 L 95 03/20/20 08:00 60 9 L 110/50 L 95 03/20/20 07:00 35.5 C L 58 L 6 L 101/51 L 93 L 03/20/20 06:00 10 L 113/69 95 03/20/20 05:00 8 L 115/79 93 L 03/20/20 04:00 35.9 C L 10 L 106/72 93 L 03/20/20 03:00 13 116/62 95 03/20/20 02:00 71 9 L 110/69 95 03/20/20 01:00 10 L 109/67 96 03/20/20 00:00 36.2 C 10 L 120/76 93 L 03/19/20 23:00 8 L 95 03/19/20 22:00 11 L 126/72 96 Consult PN Assessment/Plan Procedures: Procedures ABD PARACENTESIS (02/16/20) ABD PARACENTESIS W/IMAGING (03/08/20) ACUTE HEPATITIS PANEL (02/08/20) AG DETECT NOS IA MULT (03/08/20) ALPHA-FETOPROTEIN SERUM (03/08/20) ASSAY OF AMMONIA (02/08/20) ASSAY OF AMYLASE (02/16/20) ASSAY OF PROTEIN OTHER (02/16/20) ASSAY PH BODY FLUID NOS (02/16/20) BODY FLUID CELL COUNT (02/16/20) COMPLETE CBC W/AUTO DIFF WBC (02/08/20) COMPREHEN METABOLIC PANEL (02/08/20) CULTURE OTHR SPECIMN AEROBIC (02/16/20) CYTOPATH CELL ENHANCE TECH (03/08/20) EMERGENCY DEPT VISIT (09/20/14) FUNGUS ISOLATION CULTURE (02/16/20) GLUCOSE OTHER FLUID (02/16/20) HEPATITIS A ANTIBODY (03/08/20) IMMUNOASSAY INFECTIOUS AGENT (03/08/20) LACTATE (LD) (LDH) ENZYME (02/16/20) METABOLIC PANEL TOTAL CA (03/08/20) MYCOBACTERIA CULTURE (02/16/20) PROTHROMBIN TIME (02/08/20) ROUTINE VENIPUNCTURE (03/08/20) SMEAR FLUORESCENT/ACID STAI (02/16/20) SMEAR GRAM STAIN (02/16/20) SPECIMEN INFECT AGNT CONCNTJ (02/16/20) THER/PROPH/DIAG IV INF ADDON (03/08/20) THER/PROPH/DIAG IV INF INIT (03/08/20) TISSUE EXAM BY PATHOLOGIST (03/08/20) Problem List Initiated/Reviewed/Updated: Yes My Orders Last 24 Hours: My Active Orders 03/20/20 09:00 Lactulose [Chronulac] 10 gm PO BID 03/20/20 09:15 Midodrine 7.5 mg PO TID 03/20/20 10:00 Albumin Human [Albumin 25%] 25 gm in 100 ml IV Q8H 03/20/20 18:45 Insert Soliz Catheter [Insert Urinary Catheter] [OM.PC] Q24H 03/21/20 05:00 Abdomen 2V AP Flat Upright [CR] DAILY CBC W/O DIFF,HEMOGRAM [HEME] Timed (1) COMPREHENSIVE METABOLIC PN,CMP [CHEM] Timed MAGNESIUM [CHEM] Timed Plan: ASSESSMENT AND RECOMMENDATIONS ACUTE KIDNEY INJURY-initially high concern for hepatorenal syndrome. Clinically improving and creatinine back to normal. We are going to try to wean off the norepinephrine which seems to be going well. Tolerating midodrine. Urine output has been good. -Closely monitor urine output and renal function -Hold ARB, furosemide, and Spironolactone -Albumin 50 g today -Continue of midodrine, wean norepinephrine as able -Continue Soliz catheter for strict intake and output monitoring today but hopefully can discontinue tomorrow Acute cystitis, suspected-urinalysis possibly suggestive of infection and he has been started on antibiotics. Culture negative so far. -Continue ceftriaxone today, discontinue tomorrow if culture negative. 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 Recent rapidly recurrent ascites requiring frequent paracentesis. Calculated Meld score of 24, Meldna of 26. Ammonia level is elevated. -Start lactulose twice daily -Ammonia level in the morning -Repeat paracentesis as indicated Ileus-passing some gas but no bowel movement as of yet. Abdomen is somewhat distended. He is receiving bowel stimulation. -Bowel stimulation including lactulose -Flat and upright in the morning Jose Boateng MD
[2020-03-20] MEDS: cefTRIAXone 1 GM in Sodium Chloride 0.9% 50 ML IV SCH (23:30)
[2020-03-21] MEDS: Metoclopramide 10 MG/2 ML SDV IV SCH ×4 (03:58→21:36)
[2020-03-21] MEDS: Pantoprazole 40 MG Tab.CR PO SCH ×2 (07:41→15:38)
[2020-03-21] MEDS: Lactulose Soln 10 GM/15 ML 15 ML UD Cup PO SCH ×2 (08:38→21:34)
[2020-03-21] MEDS: Bisacodyl 5 MG Tab PO SCH (08:39)
[2020-03-21] MEDS: Midodrine 5 MG Tab PO SCH ×3 (08:39→21:35)
[2020-03-21] MEDS: Azithromycin 250 MG Tab PO SCH ×2 (08:39→21:35)
[2020-03-21] MEDS: HYDROmorphone/Normal Saline 15 MG/30 ML PCA IV PRN (09:25)
[2020-03-21] MEDS ORDERED: HYDROmorphone 1 MG/ML Syringe IVPUSH ONE (09:41)
--- NOTE | 2020-03-21 09:46 | PCM.CONSN ---
- General Info Date of Service: 03/21/20 Subjective Update: No acute events overnight. Urine output has been acceptable but not spectacular. Creatinine level is stable. No fevers. Still no bowel movement but he is passing some gas. X-ray this morning showed significant dilation of small and large intestine. A CT scan of the abdomen and pelvis showed moderate ascites and dilated loops of bowel as well as a dilated colon with the appearance of possible partial obstruction in the distal descending colon. Patient is quite uncomfortable today and complaining of moderately severe diffuse abdominal pain. The OUTPATIENT PHLEBOTOMIST helps minimally. He has not had any fevers. He feels short of breath because his belly so distended. Functional Status: Denies: Pain Controlled - Review of Systems Gastrointestinal: Reports: Abdominal Pain, Flatus - Patient Data Vitals - Most Recent: Last Vital Signs Temp 35.5 C L 03/21/20 07:00 Pulse 72 03/21/20 08:00 Resp 12 03/21/20 08:00 BP 108/57 L 03/21/20 08:00 Pulse Ox 96 03/21/20 08:00 Weight - Most Recent: 103 kg I&O - Last 24 Hours: Intake & Output 03/20/20 03/21/20 03/21/20 22:59 06:59 14:59 Intake Total 725 581 Output Total 145 425 Balance 580 156 Lab Results Last 24 Hours: Laboratory Results - last 24 hr 03/21/20 03/21/20 Range/Units 05:00 05:00 WBC 5.5 (4.5-11.0) K/uL RBC 2.77 L (4.30-5.90) M/uL Hgb 10.1 L (12.0-15.0) g/dL Hct 29.6 L (40.0-54.0) % MCV 107 H (80-98) fL MCH 37 H (27-31) pg MCHC 34 (32-36) % Plt Count 102 L (150-400) K/uL Sodium 137 L (140-148) mmol/L Potassium 4.1 (3.6-5.2) mmol/L Chloride 105 (100-108) mmol/L Carbon Dioxide 23 (21-32) mmol/L Anion Gap 13.1 (5.0-14.0) mmol/L BUN 24 H (7-18) mg/dL Creatinine 1.2 (0.8-1.3) mg/dL Est Cr Clr Drug Dosing 71.05 mL/min Estimated GFR (MDRD) > 60 (>60) Glucose 110 H (74-106) mg/dL Calcium 8.6 (8.5-10.1) mg/dL Magnesium 1.8 (1.8-2.4) mg/dL Total Bilirubin 3.7 H (0.2-1.0) mg/dL AST 39 H (15-37) U/L ALT 29 (12-78) U/L Alkaline Phosphatase 37 L (46-116) U/L Total Protein 5.8 L (6.4-8.2) g/dL Albumin 3.4 (3.4-5.0) g/dL Globulin 2.4 (2.3-3.5) g/dL Albumin/Globulin Ratio 1.4 (1.2-2.2) Misael Results Last 24 Hours: Microbiology 03/18/20 18:30 Gram Stain - Final Abdominal Fluid - Aspirate Body Fluid Culture - Preliminary NO GROWTH AFTER 2 DAYS 03/18/20 22:00 Urine Culture - Final Urine, Soliz Cath (Indwelling) NO GROWTH AFTER 2 DAYS Med Orders - Current: Current Medications Azithromycin (Zithromax) 250 mg PO BID [facility] Last Admin: 03/21/20 08:39 Dose: 250 mg Documented by: Hydromorphone HCl (Dilaudid Garage Door Installer 15 Mg In Ns 30 Ml) 0 mg IV ASDIRECTED PRN; Protocol PRN Reason: OUTPATIENT PHLEBOTOMIST PAIN CONTROL Last Admin: 03/21/20 09:25 Dose: 15 mg Documented by: Dextrose/Lactated Ringer's (Dextrose 5%-Lactated Ringers) 1,000 mls @ 0 mls/hr IV ASDIRECTED [facility] Last Admin: 03/19/20 01:00 Dose: 200 mls/hr Documented by: Lactulose (Chronulac) 10 gm PO BID [facility] Last Admin: 03/21/20 08:38 Dose: 10 gm Documented by: Metoclopramide HCl (Reglan) 10 mg IV Q6H [facility] Last Admin: 03/21/20 09:27 Dose: 10 mg Documented by: Midodrine (Midodrine) 7.5 mg PO TID [facility] Last Admin: 03/21/20 08:39 Dose: 7.5 mg Documented by: Naloxone HCl (Narcan) 0.1 mg IV ASDIRECTED PRN PRN Reason: decreased respiratory rate Ondansetron HCl (Zofran) 4 mg IVPUSH Q4H PRN PRN Reason: Nausea Pantoprazole Sodium (Protonix) 40 mg PO BIDAC [facility] Last Admin: 03/21/20 07:41 Dose: 40 mg Documented by: Discontinued Medications Bisacodyl (Dulcolax) 10 mg RECTAL ONETIME ONE Stop: 03/16/20 15:31 Last Admin: 03/16/20 16:15 Dose: 10 mg Documented by: Bisacodyl (Dulcolax) 10 mg PO TID [facility] Last Admin: 03/21/20 08:39 Dose: 10 mg Documented by: Fentanyl (Sublimaze) Confirm Administered Dose 100 mcg .ROUTE .STK-MED ONE Stop: 03/16/20 09:13 Furosemide (Lasix) 20 mg PO DAILY [facility] Last Admin: 03/18/20 09:15 Dose: 20 mg Documented by: Hydromorphone HCl (Dilaudid) 1 mg IVPUSH ONETIME ONE Stop: 03/21/20 09:42 Albumin Human (Albumin 25%) 25 gm in 100 mls @ 25 mls/hr IV ONETIME ONE Stop: 03/16/20 13:59 Last Admin: 03/16/20 14:32 Dose: Not Given Documented by: Sodium Chloride (Normal Saline) 1,000 mls @ 100 mls/hr IV [facility] Last Admin: 03/16/20 08:18 Dose: 100 mls/hr Documented by: Dextrose/Lactated Ringer's (Dextrose 5%-Lactated Ringers) 1,000 mls @ 75 mls/hr IV [facility] Last Admin: 03/17/20 18:04 Dose: 75 mls/hr Documented by: Azithromycin 250 mg/ Sodium (Chloride) 150 mls @ 150 mls/hr IV ONETIME ONE Stop: 03/16/20 16:59 Last Admin: 03/16/20 16:29 Dose: 150 mls/hr Documented by: Albumin Human (Albumin 25%) 25 gm in 100 mls @ 25 mls/hr IV ONETIME ONE Stop: 03/16/20 21:59 Last Admin: 03/16/20 18:14 Dose: 25 mls/hr Documented by: Albumin Human (Albumin 25%) 25 gm in 100 mls @ 25 mls/hr IV Q4H [facility] Stop: 03/17/20 17:59 Last Admin: 03/17/20 14:56 Dose: 25 mls/hr Documented by: Lactated Ringer's (Ringers, Lactated) 1,000 mls @ 750 mls/hr IV BOLUS ONE Stop: 03/18/20 02:49 Last Admin: 03/18/20 01:38 Dose: 750 mls/hr Documented by: Lactated Ringer's (Ringers, Lactated) 1,000 mls @ 999 mls/hr IV BOLUS ONE Stop: 03/18/20 07:39 Last Admin: 03/18/20 07:06 Dose: 999 mls/hr Documented by: Albumin Human (Albumin 25%) 25 gm in 100 mls @ 25 mls/hr IV ONETIME ONE Stop: 03/18/20 13:59 Last Admin: 03/18/20 09:16 Dose: 25 mls/hr Documented by: Lactated Ringer's (Ringers, Lactated) 1,000 mls @ 999 mls/hr IV ONETIME ONE Stop: 03/18/20 12:50 Last Admin: 03/18/20 11:50 Dose: 999 mls/hr Documented by: Albumin Human (Albumin 25%) 25 gm in 100 mls @ 25 mls/hr IV ONETIME ONE Stop: 03/18/20 19:43 Last Admin: 03/18/20 16:13 Dose: 25 mls/hr Documented by: Albumin Human (Albumin 25%) 25 gm in 100 mls @ 25 mls/hr IV ONETIME ONE Stop: 03/18/20 23:44 Last Admin: 03/18/20 20:46 Dose: 25 mls/hr Documented by: Albumin Human (Albumin 25%) 25 gm in 100 mls @ 25 mls/hr IV ONETIME ONE Stop: 03/19/20 03:49 Last Admin: 03/19/20 00:58 Dose: 25 mls/hr Documented by: Octreotide Acetate 500 mcg/ (Sodium Chloride) 500 mls @ 50 mls/hr IV Q10H [facility] Norepinephrine Bitartrate 4 mg (/ Dextrose/Water) 250 mls @ 7.5 mls/hr IV TITRATE [facility]; Protocol Last Titration: 03/20/20 11:00 Dose: 0 mcg/min, 0 mls/hr Documented by: Ceftriaxone Sodium 1 gm/ (Sodium Chloride) 50 mls @ 100 mls/hr IV Q24H [facility] Last Admin: 03/20/20 23:30 Dose: 100 mls/hr Documented by: Albumin Human (Albumin 25%) 25 gm in 100 mls @ 25 mls/hr IV Q4H [facility] Stop: 03/20/20 03:59 Last Admin: 03/20/20 00:24 Dose: 25 mls/hr Documented by: Magnesium Sulfate (Magnesium Sulfate In Water Premix) 2 gm in 50 mls @ 12.5 mls/hr IV ONETIME ONE Stop: 03/19/20 15:59 Last Admin: 03/19/20 11:24 Dose: 12.5 mls/hr Documented by: Albumin Human (Albumin 25%) 25 gm in 100 mls @ 25 mls/hr IV Q8H [facility] Stop: 03/20/20 21:59 Last Admin: 03/20/20 18:01 Dose: 25 mls/hr Documented by: Lidocaine HCl (Xylocaine 2% Jelly) 10 ml MUCMEM ONETIME ONE Stop: 03/17/20 18:55 Last Admin: 03/17/20 19:12 Dose: 10 ml Documented by: Lidocaine HCl (Xylocaine 2% Jelly) Confirm Administered Dose 10 ml .ROUTE .STK- MED ONE Stop: 03/17/20 19:05 Last Admin: 03/17/20 19:11 Dose: Not Given Documented by: Losartan Potassium (Cozaar) 100 mg PO DAILY [facility] Last Admin: 03/18/20 08:46 Dose: Not Given Documented by: Magnesium Sulfate (Magnesium Sulfate In Water Premix) 2 gm IV ONETIME ONE Stop: 03/19/20 12:01 Midazolam HCl (Versed 1 Mg/Ml) Confirm Administered Dose 2 mg .ROUTE .STK-MED ONE Stop: 03/16/20 09:13 Midodrine (Midodrine) 7.5 mg PO Q8H [facility] Last Admin: 03/20/20 03:49 Dose: 7.5 mg Documented by: Pantoprazole Sodium (Protonix Iv) 40 mg IVPUSH ONETIME ONE Stop: 03/16/20 10:55 Last Admin: 03/16/20 11:00 Dose: 40 mg Documented by: Pantoprazole Sodium (Protonix Iv) 40 mg IV Q12H [facility] Last Admin: 03/17/20 03:44 Dose: 40 mg Documented by: Propofol (Diprivan 20 Ml) Confirm Administered Dose 200 mg .ROUTE .STK-MED ONE Stop: 03/16/20 09:13 Propofol (Diprivan 20 Ml) Confirm Administered Dose 200 mg .ROUTE .STK-MED ONE Stop: 03/16/20 10:12 Spironolactone (Aldactone) 50 mg PO DAILY [facility] Last Admin: 03/18/20 09:15 Dose: 50 mg Documented by: - Exam Quality Assessment: No: Supplemental Oxygen General: Alert, Cooperative, No Acute Distress Lungs: Clear to Auscultation, Normal Respiratory Effort Cardiovascular: Regular Rate, Regular Rhythm GI/Abdominal Exam: Distended, Tender. No: Guarding, Abnormal Bowel Sounds (tympanic ) Extremities: No Pedal Edema. No: Increased Warmth Skin: Warm, Dry Psy/Mental Status: Alert, Normal Affect Sepsis Event Note - Evaluation Sepsis Screening Result: No Definite Risk - Focused Exam Vital Signs: Vital Signs Temp Pulse Resp BP Pulse Ox 03/21/20 08:00 72 12 108/57 L 96 03/21/20 07:00 35.5 C L 68 13 107/63 94 L 03/21/20 06:00 103/58 L 03/21/20 05:00 9 L 104/58 L 03/21/20 04:00 10 L 103/62 03/21/20 03:00 9 L 103/62 96 03/21/20 02:00 12 103/67 95 03/21/20 01:00 11 L 128/80 95 03/21/20 00:00 36.1 C 11 L 113/60 95 03/20/20 23:00 8 L 122/69 92 L 03/20/20 22:00 10 L 111/68 94 L Consult PN Assessment/Plan Procedures: Procedures ABD PARACENTESIS (02/16/20) ABD PARACENTESIS W/IMAGING (03/08/20) ACUTE HEPATITIS PANEL (02/08/20) AG DETECT NOS IA MULT (03/08/20) ALPHA-FETOPROTEIN SERUM (03/08/20) ASSAY OF AMMONIA (02/08/20) ASSAY OF AMYLASE (02/16/20) ASSAY OF PROTEIN OTHER (02/16/20) ASSAY PH BODY FLUID NOS (02/16/20) BODY FLUID CELL COUNT (02/16/20) COMPLETE CBC W/AUTO DIFF WBC (02/08/20) COMPREHEN METABOLIC PANEL (02/08/20) CULTURE OTHR SPECIMN AEROBIC (02/16/20) CYTOPATH CELL ENHANCE TECH (03/08/20) EMERGENCY DEPT VISIT (09/20/14) FUNGUS ISOLATION CULTURE (02/16/20) GLUCOSE OTHER FLUID (02/16/20) HEPATITIS A ANTIBODY (03/08/20) IMMUNOASSAY INFECTIOUS AGENT (03/08/20) LACTATE (LD) (LDH) ENZYME (02/16/20) METABOLIC PANEL TOTAL CA (03/08/20) MYCOBACTERIA CULTURE (02/16/20) PROTHROMBIN TIME (02/08/20) ROUTINE VENIPUNCTURE (03/08/20) SMEAR FLUORESCENT/ACID STAI (02/16/20) SMEAR GRAM STAIN (02/16/20) SPECIMEN INFECT AGNT CONCNTJ (02/16/20) THER/PROPH/DIAG IV INF ADDON (03/08/20) THER/PROPH/DIAG IV INF INIT (03/08/20) TISSUE EXAM BY PATHOLOGIST (03/08/20) Problem List Initiated/Reviewed/Updated: Yes My Orders Last 24 Hours: My Active Orders 03/20/20 09:00 Lactulose [Chronulac] 10 gm PO BID 03/20/20 09:15 Midodrine 7.5 mg PO TID 03/21/20 05:00 Abdomen 2V AP Flat Upright [CR] DAILY 03/21/20 08:58 Abdomen Pelvis wo Cont [CT] Routine 03/21/20 Lunch NPO Now [Nothing per Oral Now Diet] [DIET] 03/21/20 18:45 Insert Soliz Catheter [Insert Urinary Catheter] [OM.PC] Q24H 03/22/20 05:00 Abdomen 2V AP Flat Upright [CR] DAILY AMMONIA VENOUS [CHEM] Timed BASIC METABOLIC PANEL,BMP [CHEM] Timed CBC W/O DIFF,HEMOGRAM [HEME] Timed (1) Plan: ASSESSMENT AND RECOMMENDATIONS Ileus versus partial obstruction-passing some gas but no bowel movement as of yet. Abdomen is is quite distended and painful today. CT showed possible area of narrowing in the distal descending colon. Paracentesis planned for later in the day to see if this will help. -Paracentesis per Dr. Rao -Bowel stimulation including lactulose -Flat and upright in the morning ACUTE KIDNEY INJURY-initially high concern for hepatorenal syndrome. Clinically improving and creatinine back to normal. Creatinine stable off the norepinephrine. -Closely monitor urine output and renal function -Hold ARB, furosemide, and Spironolactone -Continue of midodrine -Continue Soliz catheter for strict intake and output monitoring today but hopefully can discontinue tomorrow Acute cystitis, suspected-urinalysis possibly suggestive of infection and he has been started on antibiotics. Culture remains negative. -Discontinue antibiotics -Follow-up culture HEPATIC CIRRHOSIS-secondary to hepatitis C infection and alcohol use. Recent rapidly recurrent ascites requiring frequent paracentesis. Calculated Meld score of 24, Meldna of 26. Ammonia level is elevated. -Continue lactulose twice daily -Ammonia level in the morning -Repeat paracentesis as indicated Jose Boateng MD
--- NOTE | 2020-03-21 09:54 | CR ---
Abdomen 2V AP Flat Upright CLINICAL HISTORY: Abdominal pain Comparison: CT 03/16/2020 FINDINGS: Patient has persisting gaseous distention of small bowel and colon. Patient was status post colonoscopy at that time. There is no significant air in the rectosigmoid colon Review of CT shows a similar pattern. No definite mass is identified. This could be some spasm IMPRESSION: Persistent small bowel as well as right and transverse colon distention. There is minimal air in the distal descending and rectosigmoid colon. Some element of spasm or stricture is not excluded. This finding should be correlated with the recent colonoscopy.
--- NOTE | 2020-03-21 11:46 | CT ---
Abdomen Pelvis wo Cont CLINICAL HISTORY: Ileus versus obstruction COMPARISON: 03/16/2020. TECHNIQUE: Axial tomographic images are obtained from the dome of the diaphragm to the pubic symphysis without IV contrast enhancement. No oral contrast was used. Patient refused both. Auto dosage reduction and iterative reconstruction techniques employed. FINDINGS: There is persistent diffuse small bowel distention. There is an increase in fluid-filled bowel loops. There are multiple air-fluid levels. There is moderate gaseous distention of the right and transverse colon. There is mild distention of the proximal descending colon. There is a focus of persistent narrowing in the mid descending colon. This is similar to prior study. There is now gas beyond in the distal descending and rectosigmoid colon. There is some pneumatosis in the cecum and proximal ascending colon. This is likely related to the gaseous distention. The lung bases show some patchy groundglass opacification in the lingula and in the right lateral basal segment. This is felt to represent some minimal atelectasis. Patient small bibasal effusions which have increased since prior study. The liver shows cirrhotic changes. The gallbladder has a normal appearance. The spleen is enlarged. There is moderate diffuse abdominal pelvic ascites similar to previous study. The pancreas is less than optimally demarcated. There is no obvious mass or inflammatory change.. The adrenal glands appear normal bilaterally. The kidneys show no stones or hydronephrosis. The aorta shows some atheromatous plaque. There is no suspicious retroperitoneal adenopathy. There is increasing diffuse subcutaneous edema. IMPRESSION: Moderate abdominal pelvic ascites with developing subcutaneous edema suggests anasarca. Cirrhotic changes of the liver with splenomegaly Persistent small bowel and colonic distention. Air is now seen passing into the distal colon and rectum. There is a area of persistent narrowing in the mid descending colon. This is not well demarcated due to the amount of ascites. Findings should be correlated with colonoscopy
[2020-03-21] MEDS ORDERED: Bacitracin Oint 1 GM U/D Packet TOP ONE (14:00)
--- NOTE | 2020-03-21 23:17 | CONS ---
DATE OF SERVICE: 03/21/2020 REFERRING PHYSICIAN: CONSULTING PHYSICIAN: Jasper Rao MD REASON FOR CONSULTATION: Evaluation of abdominal pain. HISTORY OF PRESENT ILLNESS: A 59-year-old male who underwent a recent colonoscopy. However, the patient developed abdominal pain and concerns for ileus. His pain is 1 to 2 out of 10 and is intermittent. His CT scan which was also performed today showed small and large bowel distention of the air was seen passing into the distal colon and rectum. Further complicated by ascites. No nausea, vomiting, shortness of breath, or chest pain. PAST MEDICAL HISTORY: Hypoalbuminemia, cirrhosis, liver disease, heartburn, multiple orthopedic injuries such as hip pain and fractures, history of depression, high cholesterol, hyperlipidemia. SOCIAL HISTORY: He is not a current smoker. FAMILY HISTORY: Noncontributory. REVIEW OF SYSTEMS: GENERAL: The patient feels tired. CARDIOVASCULAR: No chest pain. RESPIRATORY: Does reports some wheezing. GASTROINTESTINAL: Distention as described above. GENITOURINARY: No dysuria. MUSCULOSKELETAL: No symptoms. SKIN: No concerns per the patient. The remainder review of systems is reviewed and is negative. PHYSICAL EXAMINATION: VITAL SIGNS: Temperature 96.1, blood pressure 109/70, pulse 73, respirations 11, 94% on room air. HEENT: Pupils are equal. NECK: Supple. LUNGS: Clear. CARDIOVASCULAR: Regular rhythm and rate. RESPIRATORY: Wheezes bilaterally. ABDOMEN: Distended. EXTREMITIES: Full range of motion. NEUROLOGICAL: Oriented x3. PSYCHIATRIC: No gross depression. LABORATORY RESULTS: Show normal white blood cell count. IMAGING DATA: I did review the CT scan as described above. ASSESSMENT AND PLAN: 1. Ileus. The patient has probably developed an ileus secondary to his ascites and recent procedures. The patient refused oral contrast; however, there is air moving from the small and large bowel, Now moving into the rectum, suggesting improvement. 2. Ascites. We will perform paracentesis today and see if this improves his ascites. 3. General disposition. Per Internal Medicine services. 4. Cirrhosis will be addressed with paracentesis and albumin per Medicine. Jasper Rao MD /[id number]
[2020-03-22] MEDS: Metoclopramide 10 MG/2 ML SDV IV SCH ×4 (04:18→21:10)
[2020-03-22] MEDS: Pantoprazole 40 MG Tab.CR PO SCH ×2 (07:39→16:11)
--- NOTE | 2020-03-22 09:58 | CR ---
Abdomen 2V AP Flat Upright CLINICAL HISTORY: Ileus FINDINGS: There is persistent small bowel and colonic gaseous distention. The transverse colon now measures 15 cm in diameter. No obvious wall thickening. IMPRESSION: Persistent small bowel and increasing colonic gaseous distention.
[2020-03-22] MEDS: Azithromycin 250 MG Tab PO SCH ×2 (10:04→20:17)
[2020-03-22] MEDS: Midodrine 5 MG Tab PO SCH ×3 (10:04→20:17)
[2020-03-22] MEDS: Lactulose Soln 10 GM/15 ML 15 ML UD Cup PO SCH ×3 (10:05→20:19)
--- NOTE | 2020-03-22 10:25 | PCM.CONSN ---
- General Info Date of Service: 03/22/20 Subjective Update: No acute events overnight. Tolerated his paracentesis yesterday with more than 2 L of fluid removed. Vital signs have been stable. Abdomen still feels quite distended and uncomfortable. He is passing a small amount of gas and having some liquid stool. The paracentesis site from yesterday is leaking a fair amount of fluid. No nausea. Seems a little bit more clear today and ammonia level is slightly better. Functional Status: Reports: Pain Controlled, Tolerating Diet - Review of Systems General: Denies: Fever Gastrointestinal: Reports: Abdominal Pain, Flatus - Patient Data Vitals - Most Recent: Last Vital Signs Temp 36.2 C 03/22/20 07:00 Pulse 68 03/22/20 07:00 Resp 10 L 03/22/20 07:00 BP 115/64 03/22/20 07:00 Pulse Ox 96 03/22/20 07:00 Weight - Most Recent: 103 kg I&O - Last 24 Hours: Intake & Output 03/21/20 03/22/20 03/22/20 22:59 06:59 14:59 Intake Total 536 325 Output Total 125 825 Balance 411 -500 Lab Results Last 24 Hours: Laboratory Results - last 24 hr 03/22/20 03/22/20 03/22/20 Range/Units 04:50 04:50 04:50 WBC 4.9 (4.5-11.0) K/uL RBC 2.93 L (4.30-5.90) M/uL Hgb 10.3 L (12.0-15.0) g/dL Hct 30.9 L (40.0-54.0) % MCV 106 H (80-98) fL MCH 35 H (27-31) pg MCHC 33 (32-36) % Plt Count 99 L (150-400) K/uL Sodium 139 L (140-148) mmol/L Potassium 3.9 (3.6-5.2) mmol/L Chloride 106 (100-108) mmol/L Carbon Dioxide 21 (21-32) mmol/L Anion Gap 15.9 H (5.0-14.0) mmol/L BUN 18 (7-18) mg/dL Creatinine 0.9 (0.8-1.3) mg/dL Est Cr Clr Drug Dosing 94.74 mL/min Estimated GFR (MDRD) > 60 (>60) Glucose 109 H (74-106) mg/dL Calcium 8.7 (8.5-10.1) mg/dL Ammonia 46 H (11-32) mmol/L Misael Results Last 24 Hours: Microbiology 03/18/20 18:30 Gram Stain - Final Abdominal Fluid - Aspirate Body Fluid Culture - Final NO GROWTH AFTER 3 DAYS 03/18/20 22:00 Urine Culture - Final Urine, Soliz Cath (Indwelling) NO GROWTH AFTER 2 DAYS Med Orders - Current: Current Medications Azithromycin (Zithromax) 250 mg PO BID [facility] Last Admin: 03/22/20 10:04 Dose: 250 mg Documented by: Hydromorphone HCl (Dilaudid [employer] Traffic Supervisor 15 Mg In Ns 30 Ml) 0 mg IV ASDIRECTED PRN; Protocol PRN Reason: [employer] PAIN CONTROL Last Admin: 03/21/20 09:25 Dose: 15 mg Documented by: Dextrose/Lactated Ringer's (Dextrose 5%-Lactated Ringers) 1,000 mls @ 0 mls/hr IV ASDIRECTED [facility] Last Admin: 03/19/20 01:00 Dose: 200 mls/hr Documented by: Lactulose (Chronulac) 10 gm PO BID [facility] Last Admin: 03/22/20 10:05 Dose: 10 gm Documented by: Metoclopramide HCl (Reglan) 10 mg IV Q6H [facility] Last Admin: 03/22/20 10:05 Dose: 10 mg Documented by: Midodrine (Midodrine) 7.5 mg PO TID [facility] Last Admin: 03/22/20 10:04 Dose: 7.5 mg Documented by: Naloxone HCl (Narcan) 0.1 mg IV ASDIRECTED PRN PRN Reason: decreased respiratory rate Ondansetron HCl (Zofran) 4 mg IVPUSH Q4H PRN PRN Reason: Nausea Pantoprazole Sodium (Protonix) 40 mg PO BIDAC [facility] Last Admin: 03/22/20 07:39 Dose: 40 mg Documented by: Discontinued Medications Bacitracin (Bacitracin Oint 1 Gm) 1 dose TOP ONETIME ONE Stop: 03/21/20 14:01 Last Admin: 03/21/20 14:33 Dose: 1 dose Documented by: Bisacodyl (Dulcolax) 10 mg RECTAL ONETIME ONE Stop: 03/16/20 15:31 Last Admin: 03/16/20 16:15 Dose: 10 mg Documented by: Bisacodyl (Dulcolax) 10 mg PO TID [facility] Last Admin: 03/21/20 08:39 Dose: 10 mg Documented by: Fentanyl (Sublimaze) Confirm Administered Dose 100 mcg .ROUTE .STK-MED ONE Stop: 03/16/20 09:13 Furosemide (Lasix) 20 mg PO DAILY [facility] Last Admin: 03/18/20 09:15 Dose: 20 mg Documented by: Hydromorphone HCl (Dilaudid) 1 mg IVPUSH ONETIME ONE Stop: 03/21/20 09:42 Last Admin: 03/21/20 10:14 Dose: 1 mg Documented by: Albumin Human (Albumin 25%) 25 gm in 100 mls @ 25 mls/hr IV ONETIME ONE Stop: 03/16/20 13:59 Last Admin: 03/16/20 14:32 Dose: Not Given Documented by: Sodium Chloride (Normal Saline) 1,000 mls @ 100 mls/hr IV ASDIRECTED [facility] Last Admin: 03/16/20 08:18 Dose: 100 mls/hr Documented by: Dextrose/Lactated Ringer's (Dextrose 5%-Lactated Ringers) 1,000 mls @ 75 mls/hr IV ASDIRECTED [facility] Last Admin: 03/17/20 18:04 Dose: 75 mls/hr Documented by: Azithromycin 250 mg/ Sodium (Chloride) 150 mls @ 150 mls/hr IV ONETIME ONE Stop: 03/16/20 16:59 Last Admin: 03/16/20 16:29 Dose: 150 mls/hr Documented by: Albumin Human (Albumin 25%) 25 gm in 100 mls @ 25 mls/hr IV ONETIME ONE Stop: 03/16/20 21:59 Last Admin: 03/16/20 18:14 Dose: 25 mls/hr Documented by: Albumin Human (Albumin 25%) 25 gm in 100 mls @ 25 mls/hr IV Q4H [facility] Stop: 03/17/20 17:59 Last Admin: 03/17/20 14:56 Dose: 25 mls/hr Documented by: Lactated Ringer's (Ringers, Lactated) 1,000 mls @ 750 mls/hr IV BOLUS ONE Stop: 03/18/20 02:49 Last Admin: 03/18/20 01:38 Dose: 750 mls/hr Documented by: Lactated Ringer's (Ringers, Lactated) 1,000 mls @ 999 mls/hr IV BOLUS ONE Stop: 03/18/20 07:39 Last Admin: 03/18/20 07:06 Dose: 999 mls/hr Documented by: Albumin Human (Albumin 25%) 25 gm in 100 mls @ 25 mls/hr IV ONETIME ONE Stop: 03/18/20 13:59 Last Admin: 03/18/20 09:16 Dose: 25 mls/hr Documented by: Lactated Ringer's (Ringers, Lactated) 1,000 mls @ 999 mls/hr IV ONETIME ONE Stop: 03/18/20 12:50 Last Admin: 03/18/20 11:50 Dose: 999 mls/hr Documented by: Albumin Human (Albumin 25%) 25 gm in 100 mls @ 25 mls/hr IV ONETIME ONE Stop: 03/18/20 19:43 Last Admin: 03/18/20 16:13 Dose: 25 mls/hr Documented by: Albumin Human (Albumin 25%) 25 gm in 100 mls @ 25 mls/hr IV ONETIME ONE Stop: 03/18/20 23:44 Last Admin: 03/18/20 20:46 Dose: 25 mls/hr Documented by: Albumin Human (Albumin 25%) 25 gm in 100 mls @ 25 mls/hr IV ONETIME ONE Stop: 03/19/20 03:49 Last Admin: 03/19/20 00:58 Dose: 25 mls/hr Documented by: Octreotide Acetate 500 mcg/ (Sodium Chloride) 500 mls @ 50 mls/hr IV Q10H [facility] Last Admin: 03/21/20 19:55 Dose: Not Given Documented by: Norepinephrine Bitartrate 4 mg (/ Dextrose/Water) 250 mls @ 7.5 mls/hr IV TITRATE [facility]; Protocol Last Titration: 03/20/20 11:00 Dose: 0 mcg/min, 0 mls/hr Documented by: Ceftriaxone Sodium 1 gm/ (Sodium Chloride) 50 mls @ 100 mls/hr IV Q24H [facility] Last Admin: 03/20/20 23:30 Dose: 100 mls/hr Documented by: Albumin Human (Albumin 25%) 25 gm in 100 mls @ 25 mls/hr IV Q4H [facility] Stop: 03/20/20 03:59 Last Admin: 03/20/20 00:24 Dose: 25 mls/hr Documented by: Magnesium Sulfate (Magnesium Sulfate In Water Premix) 2 gm in 50 mls @ 12.5 mls/hr IV ONETIME ONE Stop: 03/19/20 15:59 Last Admin: 03/19/20 11:24 Dose: 12.5 mls/hr Documented by: Albumin Human (Albumin 25%) 25 gm in 100 mls @ 25 mls/hr IV Q8H [facility] Stop: 03/20/20 21:59 Last Admin: 03/20/20 18:01 Dose: 25 mls/hr Documented by: Albumin Human (Albumin 25%) 25 gm in 100 mls @ 25 mls/hr IV Q4H [facility] Stop: 03/21/20 23:59 Last Admin: 03/21/20 19:38 Dose: 25 mls/hr Documented by: Lidocaine HCl (Xylocaine 2% Jelly) 10 ml MUCMEM ONETIME ONE Stop: 03/17/20 18:55 Last Admin: 03/17/20 19:12 Dose: 10 ml Documented by: Lidocaine HCl (Xylocaine 2% Jelly) Confirm Administered Dose 10 ml .ROUTE .STK- MED ONE Stop: 03/17/20 19:05 Last Admin: 03/17/20 19:11 Dose: Not Given Documented by: Losartan Potassium (Cozaar) 100 mg PO DAILY [facility] Last Admin: 03/18/20 08:46 Dose: Not Given Documented by: Magnesium Sulfate (Magnesium Sulfate In Water Premix) 2 gm IV ONETIME ONE Stop: 03/19/20 12:01 Midazolam HCl (Versed 1 Mg/Ml) Confirm Administered Dose 2 mg .ROUTE .STK-MED ONE Stop: 03/16/20 09:13 Midodrine (Midodrine) 7.5 mg PO Q8H [facility] Last Admin: 03/20/20 03:49 Dose: 7.5 mg Documented by: Pantoprazole Sodium (Protonix Iv) 40 mg IVPUSH ONETIME ONE Stop: 03/16/20 10:55 Last Admin: 03/16/20 11:00 Dose: 40 mg Documented by: Pantoprazole Sodium (Protonix Iv) 40 mg IV Q12H [facility] Last Admin: 03/17/20 03:44 Dose: 40 mg Documented by: Propofol (Diprivan 20 Ml) Confirm Administered Dose 200 mg .ROUTE .STK-MED ONE Stop: 03/16/20 09:13 Propofol (Diprivan 20 Ml) Confirm Administered Dose 200 mg .ROUTE .STK-MED ONE Stop: 03/16/20 10:12 Spironolactone (Aldactone) 50 mg PO DAILY [facility] Last Admin: 03/18/20 09:15 Dose: 50 mg Documented by: - Exam Quality Assessment: No: Supplemental Oxygen General: Alert, Oriented, Cooperative, No Acute Distress Lungs: Normal Respiratory Effort. No: Wheezing Cardiovascular: Regular Rate, Regular Rhythm GI/Abdominal Exam: Soft, Distended, Tender Extremities: Pedal Edema. No: Increased Warmth Skin: Warm, Dry Psy/Mental Status: Alert, Normal Affect Sepsis Event Note - Evaluation Sepsis Screening Result: No Definite Risk - Focused Exam Vital Signs: Vital Signs Temp Pulse Resp BP Pulse Ox 03/22/20 07:00 36.2 C 68 10 L 115/64 96 03/22/20 05:50 71 10 L 111/61 95 03/22/20 04:00 36.4 C 83 12 111/61 95 03/22/20 02:00 36.2 C 70 14 107/53 L 95 03/22/20 00:00 67 10 L 121/63 94 L Consult PN Assessment/Plan POD#: 0 Procedures: Procedures ABD PARACENTESIS (02/16/20) ABD PARACENTESIS W/IMAGING (03/08/20) ACUTE HEPATITIS PANEL (02/08/20) AG DETECT NOS IA MULT (03/08/20) ALPHA-FETOPROTEIN SERUM (03/08/20) ASSAY OF AMMONIA (02/08/20) ASSAY OF AMYLASE (02/16/20) ASSAY OF PROTEIN OTHER (02/16/20) ASSAY PH BODY FLUID NOS (02/16/20) BODY FLUID CELL COUNT (02/16/20) COMPLETE CBC W/AUTO DIFF WBC (02/08/20) COMPREHEN METABOLIC PANEL (02/08/20) CULTURE OTHR SPECIMN AEROBIC (02/16/20) CYTOPATH CELL ENHANCE TECH (03/08/20) EMERGENCY DEPT VISIT (09/20/14) FUNGUS ISOLATION CULTURE (02/16/20) GLUCOSE OTHER FLUID (02/16/20) HEPATITIS A ANTIBODY (03/08/20) IMMUNOASSAY INFECTIOUS AGENT (03/08/20) LACTATE (LD) (LDH) ENZYME (02/16/20) METABOLIC PANEL TOTAL CA (03/08/20) MYCOBACTERIA CULTURE (02/16/20) PROTHROMBIN TIME (02/08/20) ROUTINE VENIPUNCTURE (03/08/20) SMEAR FLUORESCENT/ACID STAI (02/16/20) SMEAR GRAM STAIN (02/16/20) SPECIMEN INFECT AGNT CONCNTJ (02/16/20) THER/PROPH/DIAG IV INF ADDON (03/08/20) THER/PROPH/DIAG IV INF INIT (03/08/20) TISSUE EXAM BY PATHOLOGIST (03/08/20) Problem List Initiated/Reviewed/Updated: Yes My Orders Last 24 Hours: My Active Orders 03/22/20 10:24 bisacodyL [Dulcolax] 10 mg RECTAL ONETIME ONE 03/22/20 18:45 Insert Soliz Catheter [Insert Urinary Catheter] [OM.PC] Q24H 03/23/20 05:00 Abdomen 2V AP Flat Upright [CR] DAILY AMMONIA VENOUS [CHEM] Timed CBC W/O DIFF,HEMOGRAM [HEME] Timed (1) COMPREHENSIVE METABOLIC PN,CMP [CHEM] Timed MAGNESIUM [CHEM] Timed Plan: ASSESSMENT AND RECOMMENDATIONS Ileus versus partial obstruction-passing some gas and only small quantities of liquid stool so far. Abdomen is is quite distended and painful again today. CT showed possible area of narrowing in the distal descending colon but no obvious obstruction. Paracentesis completed yesterday without much improvement in the way of bowel function. -Suppository this morning -Bowel stimulation including lactulose -Flat and upright in the morning -Consider repeat CT scan with oral contrast if not improved by tomorrow ACUTE KIDNEY INJURY-initially high concern for hepatorenal syndrome. Clinically improving and creatinine back to normal. -Closely monitor urine output and renal function -Hold ARB -Restart furosemide, and Spironolactone -Continue midodrine -Remove Soliz catheter Acute cystitis, suspected-urinalysis possibly suggestive of infection and he has been started on antibiotics. Culture remains negative. -Discontinue antibiotics -Follow-up culture HEPATIC CIRRHOSIS-secondary to hepatitis C infection and alcohol use. Recent rapidly recurrent ascites requiring frequent paracentesis. Calculated Meld score of 24, Meldna of 26. Ammonia level is elevated. -Continue lactulose twice daily -Ammonia level in the morning -Repeat paracentesis as indicated Jose Boateng MD
[2020-03-22] MEDS: Furosemide 20 MG Tab PO SCH (10:47)
[2020-03-22] MEDS: Spironolactone 25 MG Tab PO SCH (10:47)
[2020-03-22] MEDS ORDERED: Bisacodyl 10 MG Supp RECTAL ONE (11:00)
--- NOTE | 2020-03-22 12:16 | OR ---
DATE OF PROCEDURE: 03/21/2020 SURGEON: Jasper Rao MD PROCEDURE: Paracentesis. FINDINGS: 2.5 L of straw-colored fluid. COMPLICATIONS: None. SOAP PRESS FEEDER: None. ANESTHETIC: Local. RISKS: Risks, benefits, alternatives, limitations including, but not limited to infection, bleeding, and perforation of abdominal structures were explained to the patient, who wished to proceed. PROCEDURE IN DETAIL: The patient was placed in a supine position. The area had been marked previously by ultrasound. This was then prepped and draped. 1% lidocaine without epinephrine was used to inject the area. A single faibola was created. A sheath was introduced as the needle was withdrawn. Straw-colored fluid was identified. This was hooked to a vacuum bottle system and 2.5 L of fluid was removed. The patient was moved in multiple positions to facilitate further drainage, however, no additional fluid could be procured. Dressings were applied. The patient tolerated the procedure well. Jasper Rao MD /[id number]
[2020-03-22] MEDS ORDERED: Lidocaine 1% with EPINEPHrine 1:100,000 50 ML MDV STA (12:28)
[2020-03-23] MEDS: Metoclopramide 10 MG/2 ML SDV IV SCH ×3 (03:17→16:22)
[2020-03-23] MEDS: Dextrose 5%-Lactated Ringers 1,000 ML IV SCH (03:19)
[2020-03-23] MEDS: Pantoprazole 40 MG Tab.CR PO SCH (07:19)
--- NOTE | 2020-03-23 09:36 | PCM.CONSN ---
- General Info Date of Service: 03/23/20 Subjective Update: Overnight the patient has become a little bit more lethargic. He continues to complain of increasing abdominal pain and distention. No significant nausea. Blood pressures have remained stable but are slightly lower than yesterday. Urine output is adequate. Abdominal x-ray this morning raised concern for free intraperitoneal air and this was confirmed with a CT scan of the abdomen and pelvis. Patient is passing a small amount of gas but has not had significant bowel movement during the course of the hospital stay. The case was reviewed with the general surgery and they recommended transfer to a tertiary center with expertise in end-stage liver disease because of the nature of the operation required to fix his perforated bowel. - Review of Systems General: Denies: Fever Gastrointestinal: Reports: Abdominal Pain Psychiatric: Reports: Confusion - Patient Data Vitals - Most Recent: Last Vital Signs Temp 36.5 C 03/23/20 07:00 Pulse 69 03/22/20 18:00 Resp 15 03/23/20 08:00 BP 104/70 03/23/20 08:00 Pulse Ox 92 L 03/23/20 08:00 Weight - Most Recent: 103 kg I&O - Last 24 Hours: Intake & Output 03/22/20 03/23/20 03/23/20 22:59 06:59 14:59 Intake Total 775 688 Output Total 1050 220 Balance -275 468 Lab Results Last 24 Hours: Laboratory Results - last 24 hr 03/23/20 03/23/20 03/23/20 Range/Units 05:00 05:00 05:00 WBC 7.5 (4.5-11.0) K/uL RBC 3.58 L (4.30-5.90) M/uL Hgb 12.6 D (12.0-15.0) g/dL Hct 37.6 L (40.0-54.0) % MCV 105 H (80-98) fL MCH 35 H (27-31) pg MCHC 34 (32-36) % Plt Count 129 L (150-400) K/uL Sodium 138 L (140-148) mmol/L Potassium 4.4 (3.6-5.2) mmol/L Chloride 104 (100-108) mmol/L Carbon Dioxide 23 (21-32) mmol/L Anion Gap 15.4 H (5.0-14.0) mmol/L BUN 15 (7-18) mg/dL Creatinine 1.0 (0.8-1.3) mg/dL Est Cr Clr Drug Dosing 85.26 mL/min Estimated GFR (MDRD) > 60 (>60) Glucose 113 H (74-106) mg/dL Calcium 8.8 (8.5-10.1) mg/dL Magnesium 1.4 L (1.8-2.4) mg/dL Total Bilirubin 4.3 H (0.2-1.0) mg/dL AST 47 H (15-37) U/L ALT 29 (12-78) U/L Alkaline Phosphatase 40 L (46-116) U/L Ammonia 32 (11-32) mmol/L Total Protein 5.9 L (6.4-8.2) g/dL Albumin 3.1 L (3.4-5.0) g/dL Globulin 2.8 (2.3-3.5) g/dL Albumin/Globulin Ratio 1.1 L (1.2-2.2) Misael Results Last 24 Hours: Microbiology 03/18/20 18:30 Gram Stain - Final Abdominal Fluid - Aspirate Body Fluid Culture - Final NO GROWTH AFTER 3 DAYS Med Orders - Current: Current Medications Azithromycin (Zithromax) 250 mg PO BID [facility] Last Admin: 03/22/20 20:17 Dose: 250 mg Documented by: Furosemide (Lasix) 20 mg PO DAILY [facility] Last Admin: 03/22/20 10:47 Dose: 20 mg Documented by: Hydromorphone HCl (Dilaudid Manager Financial Planning 15 Mg In Ns 30 Ml) 0 mg IV ASDIRECTED PRN; Protocol PRN Reason: SET STAFF [employer] Last Admin: 03/21/20 09:25 Dose: 15 mg Documented by: Dextrose/Lactated Ringer's (Dextrose 5%-Lactated Ringers) 1,000 mls @ 0 mls/hr IV ASDIRECTED [facility] Last Admin: 03/23/20 03:19 Dose: 25 mls/hr Documented by: Magnesium Sulfate 2 gm/ Premix 50 mls @ 25 mls/hr IV Q6H [facility] Stop: 03/23/20 23:44 Lactulose (Chronulac) 10 gm PO BID [facility] Last Admin: 03/22/20 20:19 Dose: Not Given Documented by: Metoclopramide HCl (Reglan) 10 mg IV Q6H [facility] Last Admin: 03/23/20 03:17 Dose: 10 mg Documented by: Midodrine (Midodrine) 7.5 mg PO TID [facility] Last Admin: 03/22/20 20:17 Dose: 7.5 mg Documented by: Naloxone HCl (Narcan) 0.1 mg IV ASDIRECTED PRN PRN Reason: decreased respiratory rate Ondansetron HCl (Zofran) 4 mg IVPUSH Q4H PRN PRN Reason: Nausea Pantoprazole Sodium (Protonix) 40 mg PO BIDAC [facility] Last Admin: 03/23/20 07:19 Dose: 40 mg Documented by: Spironolactone (Aldactone) 50 mg PO DAILY [facility] Last Admin: 03/22/20 10:47 Dose: 50 mg Documented by: Discontinued Medications Bacitracin (Bacitracin Oint 1 Gm) 1 dose TOP ONETIME ONE Stop: 03/21/20 14:01 Last Admin: 03/21/20 14:33 Dose: 1 dose Documented by: Bisacodyl (Dulcolax) 10 mg RECTAL ONETIME ONE Stop: 03/16/20 15:31 Last Admin: 03/16/20 16:15 Dose: 10 mg Documented by: Bisacodyl (Dulcolax) 10 mg PO TID [facility] Last Admin: 03/21/20 08:39 Dose: 10 mg Documented by: Bisacodyl (Dulcolax) 10 mg RECTAL ONETIME ONE Stop: 03/22/20 11:01 Last Admin: 03/22/20 10:47 Dose: 10 mg Documented by: Fentanyl (Sublimaze) Confirm Administered Dose 100 mcg .ROUTE .STK-MED ONE Stop: 03/16/20 09:13 Furosemide (Lasix) 20 mg PO DAILY [facility] Last Admin: 03/18/20 09:15 Dose: 20 mg Documented by: Hydromorphone HCl (Dilaudid) 1 mg IVPUSH ONETIME ONE Stop: 03/21/20 09:42 Last Admin: 03/21/20 10:14 Dose: 1 mg Documented by: Albumin Human (Albumin 25%) 25 gm in 100 mls @ 25 mls/hr IV ONETIME ONE Stop: 03/16/20 13:59 Last Admin: 03/16/20 14:32 Dose: Not Given Documented by: Sodium Chloride (Normal Saline) 1,000 mls @ 100 mls/hr IV ASDIRECTED [facility] Last Admin: 03/16/20 08:18 Dose: 100 mls/hr Documented by: Dextrose/Lactated Ringer's (Dextrose 5%-Lactated Ringers) 1,000 mls @ 75 mls/hr IV ASDIRECTED [facility] Last Admin: 03/17/20 18:04 Dose: 75 mls/hr Documented by: Azithromycin 250 mg/ Sodium (Chloride) 150 mls @ 150 mls/hr IV ONETIME ONE Stop: 03/16/20 16:59 Last Admin: 03/16/20 16:29 Dose: 150 mls/hr Documented by: Albumin Human (Albumin 25%) 25 gm in 100 mls @ 25 mls/hr IV ONETIME ONE Stop: 03/16/20 21:59 Last Admin: 03/16/20 18:14 Dose: 25 mls/hr Documented by: Albumin Human (Albumin 25%) 25 gm in 100 mls @ 25 mls/hr IV Q4H [facility] Stop: 03/17/20 17:59 Last Admin: 03/17/20 14:56 Dose: 25 mls/hr Documented by: Lactated Ringer's (Ringers, Lactated) 1,000 mls @ 750 mls/hr IV BOLUS ONE Stop: 03/18/20 02:49 Last Admin: 03/18/20 01:38 Dose: 750 mls/hr Documented by: Lactated Ringer's (Ringers, Lactated) 1,000 mls @ 999 mls/hr IV BOLUS ONE Stop: 03/18/20 07:39 Last Admin: 03/18/20 07:06 Dose: 999 mls/hr Documented by: Albumin Human (Albumin 25%) 25 gm in 100 mls @ 25 mls/hr IV ONETIME ONE Stop: 03/18/20 13:59 Last Admin: 03/18/20 09:16 Dose: 25 mls/hr Documented by: Lactated Ringer's (Ringers, Lactated) 1,000 mls @ 999 mls/hr IV ONETIME ONE Stop: 03/18/20 12:50 Last Admin: 03/18/20 11:50 Dose: 999 mls/hr Documented by: Albumin Human (Albumin 25%) 25 gm in 100 mls @ 25 mls/hr IV ONETIME ONE Stop: 03/18/20 19:43 Last Admin: 03/18/20 16:13 Dose: 25 mls/hr Documented by: Albumin Human (Albumin 25%) 25 gm in 100 mls @ 25 mls/hr IV ONETIME ONE Stop: 03/18/20 23:44 Last Admin: 03/18/20 20:46 Dose: 25 mls/hr Documented by: Albumin Human (Albumin 25%) 25 gm in 100 mls @ 25 mls/hr IV ONETIME ONE Stop: 03/19/20 03:49 Last Admin: 03/19/20 00:58 Dose: 25 mls/hr Documented by: Octreotide Acetate 500 mcg/ (Sodium Chloride) 500 mls @ 50 mls/hr IV Q10H [facility] Last Admin: 03/21/20 19:55 Dose: Not Given Documented by: Norepinephrine Bitartrate 4 mg (/ Dextrose/Water) 250 mls @ 7.5 mls/hr IV TITRATE [facility]; Protocol Last Titration: 03/20/20 11:00 Dose: 0 mcg/min, 0 mls/hr Documented by: Ceftriaxone Sodium 1 gm/ (Sodium Chloride) 50 mls @ 100 mls/hr IV Q24H [facility] Last Admin: 03/20/20 23:30 Dose: 100 mls/hr Documented by: Albumin Human (Albumin 25%) 25 gm in 100 mls @ 25 mls/hr IV Q4H [facility] Stop: 03/20/20 03:59 Last Admin: 03/20/20 00:24 Dose: 25 mls/hr Documented by: Magnesium Sulfate (Magnesium Sulfate In Water Premix) 2 gm in 50 mls @ 12.5 mls/hr IV ONETIME ONE Stop: 03/19/20 15:59 Last Admin: 03/19/20 11:24 Dose: 12.5 mls/hr Documented by: Albumin Human (Albumin 25%) 25 gm in 100 mls @ 25 mls/hr IV Q8H [facility] Stop: 03/20/20 21:59 Last Admin: 03/20/20 18:01 Dose: 25 mls/hr Documented by: Albumin Human (Albumin 25%) 25 gm in 100 mls @ 25 mls/hr IV Q4H [facility] Stop: 03/21/20 23:59 Last Admin: 03/21/20 19:38 Dose: 25 mls/hr Documented by: Lidocaine HCl (Xylocaine 2% Jelly) 10 ml MUCMEM ONETIME ONE Stop: 03/17/20 18:55 Last Admin: 03/17/20 19:12 Dose: 10 ml Documented by: Lidocaine HCl (Xylocaine 2% Jelly) Confirm Administered Dose 10 ml .ROUTE .STK- MED ONE Stop: 03/17/20 19:05 Last Admin: 03/17/20 19:11 Dose: Not Given Documented by: Lidocaine/Epinephrine (Xylocaine 1% With Epinephrine 1:100,000) 0 ml .XX STAT STA Stop: 03/22/20 12:29 Last Admin: 03/22/20 14:56 Dose: 2.5 ml Documented by: Losartan Potassium (Cozaar) 100 mg PO DAILY [facility] Last Admin: 03/18/20 08:46 Dose: Not Given Documented by: Magnesium Sulfate (Magnesium Sulfate In Water Premix) 2 gm IV ONETIME ONE Stop: 03/19/20 12:01 Midazolam HCl (Versed 1 Mg/Ml) Confirm Administered Dose 2 mg .ROUTE .STK-MED ONE Stop: 03/16/20 09:13 Midodrine (Midodrine) 7.5 mg PO Q8H [facility] Last Admin: 03/20/20 03:49 Dose: 7.5 mg Documented by: Pantoprazole Sodium (Protonix Iv) 40 mg IVPUSH ONETIME ONE Stop: 03/16/20 10:55 Last Admin: 03/16/20 11:00 Dose: 40 mg Documented by: Pantoprazole Sodium (Protonix Iv) 40 mg IV Q12H [facility] Last Admin: 03/17/20 03:44 Dose: 40 mg Documented by: Propofol (Diprivan 20 Ml) Confirm Administered Dose 200 mg .ROUTE .STK-MED ONE Stop: 03/16/20 09:13 Propofol (Diprivan 20 Ml) Confirm Administered Dose 200 mg .ROUTE .STK-MED ONE Stop: 03/16/20 10:12 Spironolactone (Aldactone) 50 mg PO DAILY [facility] Last Admin: 03/18/20 09:15 Dose: 50 mg Documented by: - Exam Quality Assessment: No: Supplemental Oxygen General: Alert, Cooperative, No Acute Distress Lungs: Clear to Auscultation, Normal Respiratory Effort Cardiovascular: Regular Rate, Regular Rhythm GI/Abdominal Exam: Distended, Tender, Abnormal Bowel Sounds (tympanic ). No: Soft (firm) Extremities: No Pedal Edema. No: Increased Warmth Skin: Warm, Dry Psy/Mental Status: Alert. No: Agitated Sepsis Event Note - Evaluation Sepsis Screening Result: No Definite Risk - Focused Exam Vital Signs: Vital Signs Temp Resp BP Pulse Ox 03/23/20 08:00 15 104/70 92 L 03/23/20 07:00 36.5 C 16 100/64 92 L 03/23/20 06:00 36.6 C 18 101/59 L 93 L 03/23/20 05:19 20 96/72 94 L 03/23/20 04:00 13 102/63 96 03/23/20 03:00 16 102/60 94 L 03/23/20 02:00 12 100/47 L 95 03/23/20 01:00 13 107/57 L 96 03/23/20 00:00 36.6 C 12 109/56 L 95 03/22/20 23:00 14 113/55 L 94 L 03/22/20 22:00 13 117/57 L 94 L Consult PN Assessment/Plan Procedures: Procedures ABD PARACENTESIS (02/16/20) ABD PARACENTESIS W/IMAGING (03/08/20) ACUTE HEPATITIS PANEL (02/08/20) AG DETECT NOS IA MULT (03/08/20) ALPHA-FETOPROTEIN SERUM (03/08/20) ASSAY OF AMMONIA (02/08/20) ASSAY OF AMYLASE (02/16/20) ASSAY OF PROTEIN OTHER (02/16/20) ASSAY PH BODY FLUID NOS (02/16/20) BODY FLUID CELL COUNT (02/16/20) COMPLETE CBC W/AUTO DIFF WBC (02/08/20) COMPREHEN METABOLIC PANEL (02/08/20) CULTURE OTHR SPECIMN AEROBIC (02/16/20) CYTOPATH CELL ENHANCE TECH (03/08/20) EMERGENCY DEPT VISIT (09/20/14) FUNGUS ISOLATION CULTURE (02/16/20) GLUCOSE OTHER FLUID (02/16/20) HEPATITIS A ANTIBODY (03/08/20) IMMUNOASSAY INFECTIOUS AGENT (03/08/20) LACTATE (LD) (LDH) ENZYME (02/16/20) METABOLIC PANEL TOTAL CA (03/08/20) MYCOBACTERIA CULTURE (02/16/20) PROTHROMBIN TIME (02/08/20) ROUTINE VENIPUNCTURE (03/08/20) SMEAR FLUORESCENT/ACID STAI (02/16/20) SMEAR GRAM STAIN (02/16/20) SPECIMEN INFECT AGNT CONCNTJ (02/16/20) THER/PROPH/DIAG IV INF ADDON (03/08/20) THER/PROPH/DIAG IV INF INIT (03/08/20) TISSUE EXAM BY PATHOLOGIST (03/08/20) Problem List Initiated/Reviewed/Updated: Yes My Orders Last 24 Hours: My Active Orders 03/22/20 10:25 Antiembolic Devices [RC] .Routine ALLY Hose [Antiembolic Hose] [OM.PC] Routine 03/22/20 10:30 Furosemide [Lasix] 20 mg PO DAILY Spironolactone [Aldactone] 50 mg PO DAILY 03/23/20 05:00 Abdomen 2V AP Flat Upright [CR] DAILY 03/23/20 09:45 Magnesium Sulfate/Water [Magnesium Sulfate in Water Premix] 2 gm Premix Bag 1 bag IV Q6H 03/24/20 05:00 Abdomen 2V AP Flat Upright [CR] DAILY BASIC METABOLIC PANEL,BMP [CHEM] Timed CBC W/O DIFF,HEMOGRAM [HEME] Timed (1) INR,PT,PROTHROMBIN TIME [COAG] Timed Plan: ASSESSMENT AND RECOMMENDATIONS Perforated viscus-difficulty with ileus post colonoscopy a week ago and he has never really had return of bowel function. Free air noted on x-ray this morning and at least moderate free air noted on the CT scan. This does track up the left side of the abdomen where he had his last paracentesis. General surgery recommended transfer to a tertiary care center with end-stage liver disease experience. Patient is current on the waiting list at the [facility]. -Start meropenem and vancomycin -IV fluids -Symptomatic management of pain and or nausea -Transfer to tertiary care center when a bed is available ACUTE KIDNEY INJURY-initially high concern for hepatorenal syndrome. Clinically improving and creatinine back to normal. -Closely monitor urine output and renal function -Hold ARB -Hold diuretics -Hold midodrine with perforation END-STAGE LIVER DISEASE-secondary to hepatitis C infection and alcohol use. Recent rapidly recurrent ascites requiring frequent paracentesis. Calculated Meld score of 24, MeldNa of 26 at admission but now down to 17/18. INR elevated at 1.5. Ammonia level has been mildly elevated but trending down with lactulose. -Hold lactulose -Ammonia level in the morning -Repeat paracentesis as indicated Disposition-patient has a perforated intestine and requires surgical intervention in the near future. He is currently stable. Recommendation was that the patient go to a surgery center with expertise in end-stage liver disease. We are currently waiting for a bed at the [facility]. He is on broad-spectrum antibiotics and is currently stable. Jose Boateng MD
[2020-03-23] MEDS: Midodrine 5 MG Tab PO SCH (09:55)
[2020-03-23] MEDS: Azithromycin 250 MG Tab PO SCH (09:55)
[2020-03-23] MEDS: Furosemide 20 MG Tab PO SCH (09:56)
[2020-03-23] MEDS: Spironolactone 25 MG Tab PO SCH (09:56)
[2020-03-23] MEDS: Lactulose Soln 10 GM/15 ML 15 ML UD Cup PO SCH ×2 (09:56→10:09)
[2020-03-23] MEDS: Magnesium Sulfate/Water 2 GM in Premix Bag 1 BAG IV SCH ×2 (10:24→16:21)
[2020-03-23] MEDS ORDERED: Neostigmine Methylsulfate 1 MG/ML 5 ML Syringe IVPUSH ONE (10:30)
--- NOTE | 2020-03-23 11:23 | CR ---
Abdomen 2V AP Flat Upright CLINICAL HISTORY: Follow-up ileus, post paracentesis FINDINGS: There is moderate free intraperitoneal air. There is air in the left lower lateral abdominal wall. This may be the paracentesis site. There is persistent small bowel and colonic distention similar to prior study IMPRESSION: Interval development of moderate free intraperitoneal air There is air within the left lower abdominal wall. Care provider was notified at the time of this dictation at 11:15 AM
[2020-03-23] MEDS ORDERED: Meropenem 1 GM in Sodium Chloride 0.9% 100 ML IV SCH (12:00)
--- NOTE | 2020-03-23 13:56 | CT ---
Abdomen Pelvis wo Cont CLINICAL HISTORY: Free air, abdominal pain COMPARISON: 03/21/2020. TECHNIQUE: Axial tomographic images are obtained from the dome of the diaphragm to the pubic symphysis without IV contrast enhancement. No oral contrast was used. Prescribed dose FINDINGS: There is a moderate amount of free intraperitoneal air new since prior CT. There is moderate ascitic fluid. There is subcutaneous emphysema in the left lateral and anterior abdominal wall. The lung bases are free of infiltrates. There are small bilateral pleural effusions. The liver shows changes consistent with cirrhosis. The gallbladder appears normal. The spleen is enlarged. The pancreas is poorly seen due to some edema peritoneal and retroperitoneal fat. There is a tiny amount of air in the bladder which may be from instrumentation. Bowel distention is similar to prior study. There is diffuse subcutaneous and mesenteric edema suggesting anasarca. IMPRESSION: Interval development of moderate free intraperitoneal air. There is also subcutaneous air along the left lateral abdomen. Moderate ascites similar to prior study Moderate diffuse bowel distention similar to prior study
[2020-03-23] MEDS ORDERED: HYDROmorphone 0.5 MG/0.5 ML Syringe IVPUSH PRN (14:06)
[2020-03-23] MEDS ORDERED: Sodium Chloride 0.9% 1,000 ML IV SCH (15:45)
--- NOTE | 2020-03-23 18:01 | PCM.DCSUM1 ---
Discharge Summary - Hospital Course Brief History: 59-year-old male with end-stage liver disease secondary to hepatitis C and alcohol use who was admitted for observation with significant abdominal distention and discomfort following paracentesis, EGD and colonoscopy. Diagnosis: Stroke: No - Discharge Data Discharge Date: 03/23/20 Discharge Disposition: DC/Tfer to Acute Hospital 02 Condition: Critical - Referral to [facility] Primary Care Physician: Yakov Yepez Sr, MD - Discharge Diagnosis/Problem(s) (1) Perforated abdominal viscus SNOMED Code(s): 67412775 ICD Code: R19.8 - OTH SYMPTOMS AND SIGNS INVOLVING THE DGSTV SYS AND ABDOMEN Status: Acute Current Visit: Yes (2) End stage liver disease SNOMED Code(s): 443098780 ICD Code: K72.90 - HEPATIC FAILURE, UNSPECIFIED WITHOUT COMA Status: Chronic Current Visit: Yes (3) Acute kidney injury SNOMED Code(s): 53569553, 57026932 ICD Code: N17.9 - ACUTE KIDNEY FAILURE, UNSPECIFIED Status: Acute Current Visit: Yes (4) Hepatic encephalopathy SNOMED Code(s): 63852462 ICD Code: K72.90 - HEPATIC FAILURE, UNSPECIFIED WITHOUT COMA Status: Acute Current Visit: Yes (5) Ileus following gastrointestinal surgery SNOMED Code(s): 607208257 ICD Code: K91.89 - OTH POSTPROCEDURAL COMPLICATIONS AND DISORDERS OF DGSTV SYS; K56.7 - ILEUS, UNSPECIFIED Status: Acute Current Visit: Yes (6) S/P abdominal paracentesis SNOMED Code(s): 513938927 ICD Code: Z98.890 - OTHER SPECIFIED POSTPROCEDURAL STATES Status: Acute Current Visit: Yes - Patient Summary/Data Operative Procedure(s) Performed: Diagnostic paracentesis Hospital Course: Tavon initially presented to the outpatient clinic where he underwent a scheduled paracentesis for recurrent ascites as well as an EGD and a colonoscopy that were both done routinely to evaluate his gastrointestinal tract with his cirrhosis. Regarding the paracentesis, he had about 5 L of straw-colored fluid removed without incident. The EGD was performed and showed a large hiatal hernia as well as some linear erosions but no obvious bleeding. The EGD was uneventful. The colonoscopy was uneventful and he did have 2 small polyps removed. Following the procedure he had a fair amount of abdominal distention and bloating. He was having difficulty passing the gas from the colonoscopy so he was admitted for observation. His abdominal pain and bloating persisted over the next 48 hours. Laboratory studies were undertaken at this point and revealed acute kidney injury with a creatinine of 2.5. He was transferred to the intensive care unit and the hospital service was consulted. A diagnostic paracentesis was performed to rule out SBP. No organisms were seen on the Gram stain. He was empirically started on ceftriaxone. There was concern for hepato renal syndrome versus intravascular volume depletion with the acute kidney injury developing after his paracentesis. He received some IV fluids and then was started on norepinephrine to help augment systolic pressure and renal flow. Over the next 48 hours we did see steady improvement in his urine output as well as a steady decrease in his creatinine. He tolerated the infusion well and after about 2-1/2 days on the infusion his renal function had normalized. We did also supplement 100 g of albumin each day for the first 2 days and then 50 g daily for the next couple of days. We were able to wean him off the norepinephrine and he was transitioned to midodrine to help maintain his blood pressure. His kidney function has remained stable since that time. We did note his ammonia level to be elevated several days ago and he has been on lactulose with normalization of the ammonia. There have been no significant electrolyte abnormalities other than a low magnesium. Unfortunately his abdominal pain and distention have progressed throughout the course of the week. He has been able to pass only small quantities of gas and has had very minimal quantities of liquid stool. He has had aggressive bowel stimulation. His abdominal x-ray has shown persistent dilation of both the small and large intestine. We did repeat a CT scan earlier this week that showed dilated bowel but no obvious obstruction. Moderate ascites was noted. A second therapeutic paracentesis was completed on 03/21 with several liters of fluid removed and he did receive 50 g of albumin after this. Over the next 48 hours he developed progressive abdominal pain and an increase in his lethargy. On the morning of discharge his abdominal x-ray raised concern for free intraperitoneal air. This was confirmed with a CT scan that showed at least moderate free intraperitoneal air though no obvious source of the bleeding. The air did track up the left side of the abdominal wall raising concern that it may be related to the paracentesis. It is noted that he has had difficulty with abdominal distention ever since the colonoscopy 1 week ago. The surgery team here was alerted to the CT scan findings. They felt that he would benefit from transfer to a tertiary care center with more experience in handling end-stage liver folks with a high degree of concern that he would decompensate following his surgery. We did start him on broad-spectrum antibiotics and some IV fluids. He has been stable but marginal. He had some urinary retention necessitating the replacement of the Soliz catheter which had recently been removed. After reaching out for help with this sick patient from [facility] they put us in contact with K[facility]les and Dr. Rooney who graciously accepted the patient's care and transfer. He will be transferred urgently by ground ambulance with the plan to go straight to the operating room upon arrival to the hospital. He is stable for the most part at this point and the benefits of transfer far outweigh the risks. - Patient Instructions Diet: NPO Activity: Bedrest Other/Special Instructions: Transfer to [facility] - Dr Rooney general surgery accepting. - Discharge Plan *PRESCRIPTION DRUG MONITORING PROGRAM REVIEWED*: Not Applicable *COPY OF PRESCRIPTION DRUG MONITORING REPORT IN PATIENT [place]: Not Applicable Home Medications: Home Meds Losartan [Cozaar] 50 mg PO DAILY 03/10/18 [History] Multivitamin with Minerals [Multiple Vitamin] 1 tab PO DAILY 02/23/20 [History] Furosemide [Lasix] 20 mg PO DAILY 03/08/20 [History] Spironolactone [Aldactone] 50 mg PO DAILY 03/08/20 [History] Oxygen Therapy Mode: Room Air Patient Handouts: Albumin injection Referrals: Yakov Yepez Sr, MD [Primary Care Provider] - - Discharge Summary/Plan Comment DC Time >30 min.: Yes (90-transfer to acute hospital) Discharge Summary/Plan Comment: The patient is being transferred to [facility] because there are no other tertiary care centers available to handle his surgical requirement in the setting of end-stage liver disease. Both of the hospitals in [place] are at capacity at this time. The [facility] has a long waiting line. with the help of the [facility] referral team they put us in contact with [facility] who felt they could accommodate this patient and manage his acute condition. - Patient Data Vitals - Most Recent: Last Vital Signs Temp 35.6 C L 03/23/20 17:00 Pulse 95 03/23/20 17:00 Resp 13 03/23/20 17:00 BP 95/54 L 03/23/20 17:00 Pulse Ox 93 L 03/23/20 17:00 Weight - Most Recent: 103 kg I&O - Last 24 hours: Intake & Output 03/23/20 03/23/20 03/23/20 06:59 14:59 22:59 Intake Total 688 600 Output Total 220 Balance 468 600 Lab Results - Last 24 hrs: Laboratory Results - last 24 hr 03/23/20 03/23/20 03/23/20 Range/Units 05:00 05:00 05:00 WBC 7.5 (4.5-11.0) K/uL RBC 3.58 L (4.30-5.90) M/uL Hgb 12.6 D (12.0-15.0) g/dL Hct 37.6 L (40.0-54.0) % MCV 105 H (80-98) fL MCH 35 H (27-31) pg MCHC 34 (32-36) % Plt Count 129 L (150-400) K/uL Sodium 138 L (140-148) mmol/L Potassium 4.4 (3.6-5.2) mmol/L Chloride 104 (100-108) mmol/L Carbon Dioxide 23 (21-32) mmol/L Anion Gap 15.4 H (5.0-14.0) mmol/L BUN 15 (7-18) mg/dL Creatinine 1.0 (0.8-1.3) mg/dL Est Cr Clr Drug Dosing 85.26 mL/min Estimated GFR (MDRD) > 60 (>60) Glucose 113 H (74-106) mg/dL Calcium 8.8 (8.5-10.1) mg/dL Magnesium 1.4 L (1.8-2.4) mg/dL Total Bilirubin 4.3 H (0.2-1.0) mg/dL AST 47 H (15-37) U/L ALT 29 (12-78) U/L Alkaline Phosphatase 40 L (46-116) U/L Ammonia 32 (11-32) mmol/L Total Protein 5.9 L (6.4-8.2) g/dL Albumin 3.1 L (3.4-5.0) g/dL Globulin 2.8 (2.3-3.5) g/dL Albumin/Globulin Ratio 1.1 L (1.2-2.2) Med Orders - Current: Current Medications Hydromorphone HCl (Dilaudid) 0.5 mg IVPUSH Q1H PRN PRN Reason: Pain Magnesium Sulfate 2 gm/ Premix 50 mls @ 25 mls/hr IV Q6H [facility] Stop: 03/23/20 23:59 Last Admin: 03/23/20 16:21 Dose: 25 mls/hr Documented by: Meropenem 1 gm/ Sodium (Chloride) 100 mls @ 200 mls/hr IV Q8H [facility] Last Admin: 03/23/20 12:00 Dose: 200 mls/hr Documented by: Vancomycin HCl 1.5 gm/ Sodium (Chloride) 250 mls @ 150 mls/hr IV Q12H [facility] Last Admin: 03/23/20 16:22 Dose: 150 mls/hr Documented by: Sodium Chloride (Normal Saline) 1,000 mls @ 100 mls/hr IV ASDIRECTED [facility] Metoclopramide HCl (Reglan) 10 mg IV Q6H [facility] Last Admin: 03/23/20 16:22 Dose: 10 mg Documented by: Midodrine (Midodrine) 7.5 mg PO TID [facility] Last Admin: 03/23/20 09:55 Dose: 7.5 mg Documented by: Ondansetron HCl (Zofran) 4 mg IVPUSH Q4H PRN PRN Reason: Nausea [facility]op[facility]ole [facility] Last Admin: 03/23/20 07:19 Dose: 40 mg Documented by: Discontinued Medications Azithromycin (Zithromax) 250 mg PO BID [facility] Last Admin: 03/23/20 09:55 Dose: 250 mg Documented by: Bacitracin (Bacitracin Oint 1 Gm) 1 dose TOP ONETIME ONE Stop: 03/21/20 14:01 Last Admin: 03/21/20 14:33 Dose: 1 dose Documented by: Bisacodyl (Dulcolax) 10 mg RECTAL ONETIME ONE Stop: 03/16/20 15:31 Last Admin: 03/16/20 16:15 Dose: 10 mg Documented by: Bisacodyl (Dulcolax) 10 mg PO TID [facility] Last Admin: 03/21/20 08:39 Dose: 10 mg Documented by: Bisacodyl (Dulcolax) 10 mg RECTAL ONETIME ONE Stop: 03/22/20 11:01 Last Admin: 03/22/20 10:47 Dose: 10 mg Documented by: Fentanyl (Sublimaze) Confirm Administered Dose 100 mcg .ROUTE .STK-MED ONE Stop: 03/16/20 09:13 Furosemide (Lasix) 20 mg PO DAILY [facility] Last Admin: 03/18/20 09:15 Dose: 20 mg Documented by: Furosemide (Lasix) 20 mg PO DAILY [facility] Last Admin: 03/23/20 09:56 Dose: 20 mg Documented by: Hydromorphone HCl (Dilaudid [employer] Decorator 15 Mg In Ns 30 Ml) 0 mg IV ASDIRECTED PRN; Protocol PRN Reason: [employer] PAIN [employer] Last Admin: 03/21/20 09:25 Dose: 15 mg Documented by: Hydromorphone HCl (Dilaudid) 1 mg IVPUSH ONETIME ONE Stop: 03/21/20 09:42 Last Admin: 03/21/20 10:14 Dose: 1 mg Documented by: Albumin Human (Albumin 25%) 25 gm in 100 mls @ 25 mls/hr IV ONETIME ONE Stop: 03/16/20 13:59 Last Admin: 03/16/20 14:32 Dose: Not Given Documented by: Sodium Chloride (Normal Saline) 1,000 mls @ 100 mls/hr IV ASDIRECTED [facility] Last Admin: 03/16/20 08:18 Dose: 100 mls/hr Documented by: Dextrose/Lactated Ringer's (Dextrose 5%-Lactated Ringers) 1,000 mls @ 75 mls/hr IV ASDIRECTED [facility] Last Admin: 03/17/20 18:04 Dose: 75 mls/hr Documented by: Azithromycin 250 mg/ Sodium (Chloride) 150 mls @ 150 mls/hr IV ONETIME ONE Stop: 03/16/20 16:59 Last Admin: 03/16/20 16:29 Dose: 150 mls/hr Documented by: Albumin Human (Albumin 25%) 25 gm in 100 mls @ 25 mls/hr IV ONETIME ONE Stop: 03/16/20 21:59 Last Admin: 03/16/20 18:14 Dose: 25 mls/hr Documented by: Albumin Human (Albumin 25%) 25 gm in 100 mls @ 25 mls/hr IV Q4H [facility] Stop: 03/17/20 17:59 Last Admin: 03/17/20 14:56 Dose: 25 mls/hr Documented by: Lactated Ringer's (Ringers, Lactated) 1,000 mls @ 750 mls/hr IV BOLUS ONE Stop: 03/18/20 02:49 Last Admin: 03/18/20 01:38 Dose: 750 mls/hr Documented by: Lactated Ringer's (Ringers, Lactated) 1,000 mls @ 999 mls/hr IV BOLUS ONE Stop: 03/18/20 07:39 Last Admin: 03/18/20 07:06 Dose: 999 mls/hr Documented by: Albumin Human (Albumin 25%) 25 gm in 100 mls @ 25 mls/hr IV ONETIME ONE Stop: 03/18/20 13:59 Last Admin: 03/18/20 09:16 Dose: 25 mls/hr Documented by: Dextrose/Lactated Ringer's (Dextrose 5%-Lactated Ringers) 1,000 mls @ 0 mls/hr IV ASDIRECTED [facility] Last Admin: 03/23/20 03:19 Dose: 25 mls/hr Documented by: Lactated Ringer's (Ringers, Lactated) 1,000 mls @ 999 mls/hr IV ONETIME ONE Stop: 03/18/20 12:50 Last Admin: 03/18/20 11:50 Dose: 999 mls/hr Documented by: Albumin Human (Albumin 25%) 25 gm in 100 mls @ 25 mls/hr IV ONETIME ONE Stop: 03/18/20 19:43 Last Admin: 03/18/20 16:13 Dose: 25 mls/hr Documented by: Albumin Human (Albumin 25%) 25 gm in 100 mls @ 25 mls/hr IV ONETIME ONE Stop: 03/18/20 23:44 Last Admin: 03/18/20 20:46 Dose: 25 mls/hr Documented by: Albumin Human (Albumin 25%) 25 gm in 100 mls @ 25 mls/hr IV ONETIME ONE Stop: 03/19/20 03:49 Last Admin: 03/19/20 00:58 Dose: 25 mls/hr Documented by: Octreotide Acetate 500 mcg/ (Sodium Chloride) 500 mls @ 50 mls/hr IV Q10H [facility] Last Admin: 03/21/20 19:55 Dose: Not Given Documented by: Norepinephrine Bitartrate 4 mg (/ Dextrose/Water) 250 mls @ 7.5 mls/hr IV TITRATE [facility]; Protocol Last Titration: 03/20/20 11:00 Dose: 0 mcg/min, 0 mls/hr Documented by: Ceftriaxone Sodium 1 gm/ (Sodium Chloride) 50 mls @ 100 mls/hr IV Q24H [facility] Last Admin: 03/20/20 23:30 Dose: 100 mls/hr Documented by: Albumin Human (Albumin 25%) 25 gm in 100 mls @ 25 mls/hr IV Q4H [facility] Stop: 03/20/20 03:59 Last Admin: 03/20/20 00:24 Dose: 25 mls/hr Documented by: Magnesium Sulfate (Magnesium Sulfate In Water Premix) 2 gm in 50 mls @ 12.5 mls/hr IV ONETIME ONE Stop: 03/19/20 15:59 Last Admin: 03/19/20 11:24 Dose: 12.5 mls/hr Documented by: Albumin Human (Albumin 25%) 25 gm in 100 mls @ 25 mls/hr IV Q8H [facility] Stop: 03/20/20 21:59 Last Admin: 03/20/20 18:01 Dose: 25 mls/hr Documented by: Albumin Human (Albumin 25%) 25 gm in 100 mls @ 25 mls/hr IV Q4H [facility] Stop: 03/21/20 23:59 Last Admin: 03/21/20 19:38 Dose: 25 mls/hr Documented by: Lactulose (Chronulac) 10 gm PO BID [facility] Last Admin: 03/23/20 10:09 Dose: Not Given Documented by: Lidocaine HCl (Xylocaine 2% Jelly) 10 ml MUCMEM ONETIME ONE Stop: 03/17/20 18:55 Last Admin: 03/17/20 19:12 Dose: 10 ml Documented by: Lidocaine HCl (Xylocaine 2% Jelly) Confirm Administered Dose 10 ml .ROUTE .STK- MED ONE Stop: 03/17/20 19:05 Last Admin: 03/17/20 19:11 Dose: Not Given Documented by: Lidocaine/Epinephrine (Xylocaine 1% With Epinephrine 1:100,000) 0 ml .XX STAT STA Stop: 03/22/20 12:29 Last Admin: 03/22/20 14:56 Dose: 2.5 ml Documented by: Losartan Potassium (Cozaar) 100 mg PO DAILY [facility] Last Admin: 03/18/20 08:46 Dose: Not Given Documented by: Magnesium Sulfate (Magnesium Sulfate In Water Premix) 2 gm IV ONETIME ONE Stop: 03/19/20 12:01 Midazolam HCl (Versed 1 Mg/Ml) Confirm Administered Dose 2 mg .ROUTE .STK-MED ONE Stop: 03/16/20 09:13 Midodrine (Midodrine) 7.5 mg PO Q8H [facility] Last Admin: 03/20/20 03:49 Dose: 7.5 mg Documented by: Naloxone HCl (Narcan) 0.1 mg IV ASDIRECTED PRN PRN Reason: decreased respiratory rate Neostigmine Methylsulfate (Neostigmine) 2 mg IVPUSH ONETIME ONE Stop: 03/23/20 10:31 Last Admin: 03/23/20 14:28 Dose: Not Given Documented by: Pantoprazole Sodium (Protonix Iv) 40 mg IVPUSH ONETIME ONE Stop: 03/16/20 10:55 Last Admin: 03/16/20 11:00 Dose: 40 mg Documented by: Pantoprazole Sodium (Protonix Iv) 40 mg IV Q12H [facility] Last Admin: 03/17/20 03:44 Dose: 40 mg Documented by: Propofol (Diprivan 20 Ml) Confirm Administered Dose 200 mg .ROUTE .STK-MED ONE Stop: 03/16/20 09:13 Propofol (Diprivan 20 Ml) Confirm Administered Dose 200 mg .ROUTE .STK-MED ONE Stop: 03/16/20 10:12 Spironolactone (Aldactone) 50 mg PO DAILY [facility] Last Admin: 03/18/20 09:15 Dose: 50 mg Documented by: Spironolactone (Aldactone) 50 mg PO DAILY [facility] Last Admin: 03/23/20 09:56 Dose: 50 mg Documented by: - Exam Quality Assessment: Denies: Supplemental Oxygen General: Reports: Alert, Cooperative, No Acute Distress, Lethargic. Denies: Oriented Lungs: Reports: Clear to Auscultation, Normal Respiratory Effort Cardiovascular: Reports: Regular Rate, Regular Rhythm GI/Abdominal Exam: Distended, Tender, Abnormal Bowel Sounds (tympanic ). No: Soft (firm) Extremities: No Pedal Edema. No: Increased Warmth Skin: Reports: Warm, Dry Psy/Mental Status: Reports: Alert. Denies: Agitated
[2020-03-23 18:50] VITALS: BP 100/53; PULSE 78
== END 2020-03-23 19:10 | DRG 432 ==
LOC: JP.SDS 07:38 → JP.MS 15:00 → JP.SDS 15:00 → JP.MS 15:20 → OBSVTOIN 03-17 07:30 → INTOOBSV 03-17 07:30 → JP.MS 03-17 08:50 → UNDOADMOB 03-17 08:50 → JP.ICU 03-18 19:42
PROVIDERS: ADMIT Surgery; ATTEND Surgery
PROC: 0W9G3ZZ Drainage of Peritoneal Cavity, Percutaneous Approach (ICD-10-PCS; 2020-03-16)
PROC: 0DB48ZX Excision of Esophagogastric Junction, Via Natural or Artificial Opening Endoscopic, Diagnostic (ICD-10-PCS; 2020-03-16)
PROC: 0DB68ZX Excision of Stomach, Via Natural or Artificial Opening Endoscopic, Diagnostic (ICD-10-PCS; 2020-03-16)
PROC: 0DBN8ZX Excision of Sigmoid Colon, Via Natural or Artificial Opening Endoscopic, Diagnostic (ICD-10-PCS; 2020-03-16)
PROC: 0DBL8ZX Excision of Transverse Colon, Via Natural or Artificial Opening Endoscopic, Diagnostic (ICD-10-PCS; 2020-03-16)
PROC: 0W9G3ZX Drainage of Peritoneal Cavity, Percutaneous Approach, Diagnostic (ICD-10-PCS; principal; 2020-03-18)
PROC: 0W9G3ZZ Drainage of Peritoneal Cavity, Percutaneous Approach (ICD-10-PCS; 2020-03-21)
DX: K70.40 Alcoholic hepatic failure without coma (principal); K76.7 Hepatorenal syndrome; N17.9 Acute kidney failure, unspecified; K91.89 Other postprocedural complications and disorders of digestive system; K56.7 Ileus, unspecified; K22.10 Ulcer of esophagus without bleeding; N30.00 Acute cystitis without hematuria; F10.288 Alcohol dependence with other alcohol-induced disorder; R18.8 Other ascites; E86.9 Volume depletion, unspecified; Z20.828 Contact with and (suspected) exposure to other viral communicable diseases; K74.60 Unspecified cirrhosis of liver; E88.09 Other disorders of plasma-protein metabolism, not elsewhere classified; E78.00 Pure hypercholesterolemia, unspecified; E78.5 Hyperlipidemia, unspecified; I10 Essential (primary) hypertension; F32.9 Major depressive disorder, single episode, unspecified; E66.9 Obesity, unspecified; B19.20 Unspecified viral hepatitis C without hepatic coma; K44.9 Diaphragmatic hernia without obstruction or gangrene; K29.70 Gastritis, unspecified, without bleeding; K63.5 Polyp of colon; R19.8 Other specified symptoms and signs involving the digestive system and abdomen; R33.9 Retention of urine, unspecified; Z88.5 Allergy status to narcotic agent; Z91.018 Allergy to other foods; Z79.899 Other long term (current) drug therapy; Z87.891 Personal history of nicotine dependence
CPT/HCPCS: 36415; 51700; 51702; 74019; 74019-26; 74176; 74176-26; 76770; 76770-26; 80048; 80053; 81001; 82040; 82140; 82150; 82945; 83735; 83880; 84100; 84157; 85025; 85027; 85610; 87070; 87081; 87086; 87205; 89050; 94762; 96361; 96365; 96366; 96367; 96375; 96376; A9270-GY; C9113; G0378; J0456; J0696; J1170; J2185; J2250; J2704; J2765; J3010; J3370; J3475; J7030; J7050; J7060; J7120; J7121; P9047; U0002